=== PATIENT | male | born 1950 | race Caucasian/White ===

== ENCOUNTER 2017-05-17 18:08 | Inpatient (IN) | payer MEDICARE ==
[2017-05-17] MEDS ORDERED: SODIUM CHLORIDE 0.9% 1,000 ML IV STA (18:33)
--- NOTE | 2017-05-17 18:38 | ED ---
Neuro HPI - General Chief Complaint: Neuro Symptoms/Deficit Stated Complaint: LEFT ARM , LEFT FACE NUMBNESS Time Seen by Provider: 05/17/17 18:25 Source: patient, RN notes reviewed, old records reviewed Mode of arrival: wheelchair Limitations: no limitations - History of Present Illness Is the patient presenting with stroke symptoms?: No Initial Comments: This patient is a 66-year-old male presents emergency department today chief complaint of left-sided facial numbness and left arm numbness that started at 5 PM today. Patient reports he has a history of high platelet disorder and is currently taking hydroxyurea 3 times a week. He sees an oncologist at [facility] who prescribed these medications for him. Patient reports that he has no other physical complaints. He states that he had a periodic episode of weakness in the left hand but that subsided. Patient reports a few weeks ago he had similar symptoms occur on the right side of his arm and hand but those symptoms shortly subsided. Patient states that he has been having increased heartburn, was unsure Related to cardiac origin rather than just heartburn. He states that he did eat chili so was not as concerned about this. Patient states that he has no shortness of breath or chest pain at this time, denies any headache. - Related Data Home Medications: Home Medications Medication Instructions Recorded Confirmed Hydroxyurea 500 mg PO DAILY 07/25/15 10/03/15 Flaxseed Tablet 1,300 mg PO DAILY 10/01/15 10/03/15 Garlic 1 each PO DAILY 10/01/15 10/03/15 Glucosam/Braydon-Msm1/C/Jose M/Bosw 1 each PO DAILY 10/01/15 10/03/15 [Glucosamine-Chondroitin Tablet] Allergies/Adverse Reactions: Allergies Allergy/AdvReac Type Severity Reaction Status Date / Time bacitracin Allergy Rash/Hives Verified 05/17/17 18:10 [From Neosporin ([id number])] bacitracin zinc Allergy Rash/Hives Verified 05/17/17 18:10 [From Neosporin ([id number])] neomycin sulfate Allergy Rash/Hives Verified 05/17/17 18:10 [From Neosporin ([id number])] polymyxin B Allergy Rash/Hives Verified 05/17/17 18:10 [From Neosporin ([id number])] Review of Systems ROS Statement: Those systems with pertinent positive or pertinent negative responses have been documented in the HPI. ROS Other: All systems not noted in ROS Statement are negative. General Exam - General Exam Comments Initial Comments: This patient is a 66-year-old male. He is alert and oriented 4. No acute distress. Limitations: no limitations General appearance: alert, in no apparent distress Head exam: Present: atraumatic, normocephalic, normal inspection Eye exam: Present: normal appearance, PERRL, EOMI. Absent: scleral icterus, conjunctival injection, periorbital swelling ENT exam: Present: normal exam, mucous membranes moist Neck exam: Present: normal inspection. Absent: tenderness, meningismus, lymphadenopathy Respiratory exam: Present: normal lung sounds bilaterally. Absent: respiratory distress, wheezes, rales, rhonchi, stridor Cardiovascular Exam: Present: regular rate, normal rhythm, normal heart sounds. Absent: systolic murmur, diastolic murmur, rubs, gallop, clicks GI/Abdominal exam: Present: soft, normal bowel sounds. Absent: distended, tenderness, guarding, rebound, rigid Extremities exam: Present: normal inspection, full ROM, normal capillary refill. Absent: tenderness, pedal edema, joint swelling, calf tenderness Back exam: Present: normal inspection Neurological exam: Present: alert, oriented X3, CN II-XII intact, normal gait Expanded Patient oriented to: Present: person, place, time Speech: Present: fluid speech Cranial nerves: EOM's Intact: Normal Cerebellar function: Finger to Nose: Normal Upper motor neuron: Pronator Drift: Normal Sensory exam: Upper Extremity Light Touch: Normal, Lower Extremity Light Touch: Normal Motor strength exam: RUE: 5, LUE: 5, RLE: 5, LLE: 5 Eye Response: (4) open spontaneously Motor Response: (6) obeys commands Verbal Response: (5) oriented Shea Total: 15 Psychiatric exam: Present: normal affect, normal mood Skin exam: Present: warm, dry, intact, normal color. Absent: rash Stroke MDM - Lab Data Result diagrams: 05/17/17 19:15 05/17/17 19:15 Lab Results 05/17/17 05/17/17 05/17/17 Range/Units 18:38 19:15 19:15 WBC 9.7 (3.8-10.6) k/uL RBC 5.13 (4.30-5.90) m/uL Hgb 17.0 (13.0-17.5) gm/dL Hct 50.9 (39.0-53.0) % MCV 99.3 (80.0-100.0) fL MCH 33.1 (25.0-35.0) pg MCHC 33.3 (31.0-37.0) g/dL RDW 14.2 (11.5-15.5) % Plt Count 606 H (150-450) k/uL Neutrophils % 77 % Lymphocytes % 13 % Monocytes % 4 % Eosinophils % 3 % Basophils % 1 % Neutrophils # 7.5 (1.3-7.7) k/uL Lymphocytes # 1.2 (1.0-4.8) k/uL Monocytes # 0.4 (0-1.0) k/uL Eosinophils # 0.3 (0-0.7) k/uL Basophils # 0.1 (0-0.2) k/uL Macrocytosis Slight PT (9.0-12.0) sec INR (<1.2) APTT (22.0-30.0) sec Sodium (137-145) mmol/L Potassium (3.5-5.1) mmol/L Chloride (98-107) mmol/L Carbon Dioxide (22-30) mmol/L Anion Gap mmol/L BUN (9-20) mg/dL Creatinine (0.66-1.25) mg/dL Est GFR (MDRD) Af Amer (>60 ml/min/1.73 sqM) Est GFR (MDRD) Non-Af (>60 ml/min/1.73 sqM) Glucose (74-99) mg/dL POC Glucose (mg/dL) 119 H (75-99) mg/dL POC Glu Mine Captain ID Arturo Hall Calcium (8.4-10.2) mg/dL Total Bilirubin (0.2-1.3) mg/dL AST (17-59) U/L ALT (21-72) U/L Alkaline Phosphatase (38-126) U/L Total Creatine Kinase 86 (55-170) U/L CK-MB (CK-2) 1.2 (0.0-2.4) ng/mL CK-MB (CK-2) Rel Index 1.4 Troponin I <0.012 (0.000-0.034) ng/mL Total Protein (6.3-8.2) g/dL Albumin (3.5-5.0) g/dL 05/17/17 05/17/17 Range/Units 19:15 19:15 WBC (3.8-10.6) k/uL RBC (4.30-5.90) m/uL Hgb (13.0-17.5) gm/dL Hct (39.0-53.0) % MCV (80.0-100.0) fL MCH (25.0-35.0) pg MCHC (31.0-37.0) g/dL RDW (11.5-15.5) % Plt Count (150-450) k/uL Neutrophils % % Lymphocytes % % Monocytes % % Eosinophils % % Basophils % % Neutrophils # (1.3-7.7) k/uL Lymphocytes # (1.0-4.8) k/uL Monocytes # (0-1.0) k/uL Eosinophils # (0-0.7) k/uL Basophils # (0-0.2) k/uL Macrocytosis PT 10.7 (9.0-12.0) sec INR 1.1 (<1.2) APTT 25.7 (22.0-30.0) sec Sodium 143 (137-145) mmol/L Potassium 4.8 (3.5-5.1) mmol/L Chloride 106 (98-107) mmol/L Carbon Dioxide 25 (22-30) mmol/L Anion Gap 12 mmol/L BUN 16 (9-20) mg/dL Creatinine 0.80 (0.66-1.25) mg/dL Est GFR (MDRD) Af Amer >60 (>60 ml/min/1.73 sqM) Est GFR (MDRD) Non-Af >60 (>60 ml/min/1.73 sqM) Glucose 105 H (74-99) mg/dL POC Glucose (mg/dL) (75-99) mg/dL POC Glu Mine Captain ID Calcium 9.8 (8.4-10.2) mg/dL Total Bilirubin 0.4 (0.2-1.3) mg/dL AST 32 (17-59) U/L ALT 40 (21-72) U/L Alkaline Phosphatase 90 (38-126) U/L Total Creatine Kinase (55-170) U/L CK-MB (CK-2) (0.0-2.4) ng/mL CK-MB (CK-2) Rel Index Troponin I (0.000-0.034) ng/mL Total Protein 6.5 (6.3-8.2) g/dL Albumin 4.2 (3.5-5.0) g/dL - NIH Stroke Scale 1a. Level of Consciousness: (0) alert 1b. LOC Questions: (0) answers correctly 1c. LOC Commands: (0) performs tasks correctly 2. Best Gaze: (0) normal 3. Visual: (0) no visual loss 4. Facial Palsy: (0) normal symmetrical movement 5a. Motor Arm Left: (0) no drift 5b. Motor Arm Right: (0) no drift 6a. Motor Leg Left: (0) no drift 6b. Motor Leg Right: (0) no drift 7. Limb Ataxia: (0) absent 8. Sensory: (0) normal 9. Best Language: (0) no aphasia 10. Dysarthria: (0) normal 11. Extinction/Inattention: (0) no abnormality - Medical Decision Making 66-year-old male presents emergency Department chief complaint of left-sided facial paresthesias and left arm paresthesias. They started at 5 PM today. He reports that for brief moment time and started him motor function loss that then shortly returned. He had symptoms like this on the right side of his body last a few weeks ago. Patient states that he has history of high platelet count. He has to take hydroxyurea takes 3 times a week. Patient states that otherwise is generally healthy. He has a family history of strokes. At this time patient has no focal neurological findings. No signs of deficits NIH of 0. We discussed this with Dr. Reinoso. He will admit the patient for 23 hour out. When patient was informed of possibility of having to pay for 23 hour observation he states that he does not want to do that at this time. I informed to the patient within have to leave AMA and follow-up promptly with Dr. Reinoso morning. Patient agrees, at this time patient will be leaving AMA. - Radiology Data No active cardiopulmonary disease. Normal heart. 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 No acute intracranial abnormality. No chagnes noted. - EKG Data EKG shows normal: sinus rhythm 05/17/17 18:49 EKG shows normal sinus rhythm, left axis deviation. Voltage criteria for LVH. Ventricular rate of 73 bpm 90 ms. QRS ration 80 ms. QT QTc is 354/389 ms. No evidence of ST elevation or T-wave inversion. Past Medical History Past Medical History: Osteoarthritis (OA) Additional Past Medical History / Comment(s): ELEVATED PLATELET COUNT History of Any Multi-Drug Resistant Organisms: None Reported Past Surgical History: Orthopedic Surgery Additional Past Surgical History / Comment(s): RIGHT SHOULDER X 2 , ARTHROSCOPIC LEFT KNEE Past Anesthesia/Blood Transfusion Reactions: No Reported Reaction Past Psychological History: No Psychological Hx Reported Smoking Status: Never smoker - Past Family History Mother Family Medical History: CVA/TIA, Dementia Course Vital Signs 05/17/17 05/17/17 05/17/17 18:10 18:45 19:00 Temperature 97.4 F L Pulse Rate 69 66 71 Respiratory 17 20 20 Rate Blood Pressure 159/80 133/78 136/80 O2 Sat by Pulse 94 L 98 98 Oximetry 05/17/17 05/17/17 05/17/17 19:15 19:30 19:45 Temperature Pulse Rate 75 73 80 Respiratory 18 20 16 Rate Blood Pressure 140/80 136/78 132/77 O2 Sat by Pulse 98 98 99 Oximetry 05/17/17 05/17/17 19:57 20:00 Temperature Pulse Rate 75 80 Respiratory 18 20 Rate Blood Pressure 134/75 148/58 O2 Sat by Pulse 95 98 Oximetry - Reevaluation(s) Reevaluation #1: 05/17/17 19:57 Patient was reevaluated at this time and is neurologically intact. No deficits. I informed patient for admission for TIA symptoms. He agrees to admission. Currently pending troponin and cardiac profile. Patient's elbow lids are elevated at this time at 606. He was given an aspirin. Disposition Clinical Impression: TIA (transient ischemic attack), Arm paresthesia, left, Facial paresthesia Disposition: Left Against Medical Advice Condition: Good Time of Disposition: 21:00
[2017-05-17] MEDS ORDERED: ASPIRIN 325 MG TAB PO STA (18:41)
[2017-05-17 19:05] LABS: Glucose,Whole Blood 119 mg/dL (75-99)
--- NOTE | 2017-05-17 19:21 | CT ---
EXAMINATION TYPE: CT brain wo con DATE OF EXAM: 05/17/2017 COMPARISON: 07/25/2015 HISTORY: LEFT ARM WEAKNESS. CT DLP: 1089.7 mGycm Automated exposure control for dose reduction was used. FINDINGS: The ventricles appear normal. There is no mass effect nor midline shift. There is no sign of intracra nial hemorrhage. There is a 2 cm area of hypodensity in the left posterior frontal lobe consistent wi th old cortical infarct. The calvarium is intact. IMPRESSION: OLD LEFT FRONTAL LOBE CORTICAL INFARCT. NO ACUTE INTRACRANIAL ABNORMALITY. NO CHANGE.
--- NOTE | 2017-05-17 19:24 | XR ---
EXAMINATION TYPE: XR chest 2V DATE OF EXAM: 05/17/2017 COMPARISON: NONE HISTORY: Altered mental status. Chest pain. TECHNIQUE: Frontal and lateral views of the chest are obtained. FINDINGS: There is no heart failure nor confluent pneumonic infiltrate. Thoracic aorta shows mild at heromatous change. There are chest leads. Costophrenic angles are clear. IMPRESSION: No active cardiopulmonary disease. Normal heart.
[2017-05-17 19:34] LABS: Basophils # (A) 0.1 k/uL (0-0.2); Basophils % (A) 1 %; Eosinophils # (A) 0.3 k/uL (0-0.7); Eosinophils % (A) 3 %; HCT 50.9 % (39.0-53.0); Lymphocytes # (A) 1.2 k/uL (1.0-4.8); Lymphocytes % (A) 13 %; MCH 33.1 pg (25.0-35.0); MCHC 33.3 g/dL (31.0-37.0); MCV 99.3 fL (80.0-100.0); Macrocytosis Slight; Monocytes # (A) 0.4 k/uL (0-1.0); Monocytes % (A) 4 %; Neutrophils # (A) 7.5 k/uL (1.3-7.7); Neutrophils % (A) 77 %; Platelet Count 606 k/uL (150-450); RBC 5.13 m/uL (4.30-5.90); RDW 14.2 % (11.5-15.5); WBC 9.7 k/uL (3.8-10.6)
[2017-05-17 19:40] LABS: INR 1.1 (<1.2); Partial Thromboplastin Time 25.7 sec (22.0-30.0); Prothrombin Time 10.7 sec (9.0-12.0)
[2017-05-17 19:44] LABS: ALT 40 U/L (21-72); AST 32 U/L (17-59); Albumin 4.2 g/dL (3.5-5.0); Alkaline Phosphatase 90 U/L (38-126); Anion Gap 12 mmol/L; Blood Urea Nitrogen 16 mg/dL (9-20); Calcium 9.8 mg/dL (8.4-10.2); Carbon Dioxide 25 mmol/L (22-30); Chloride 106 mmol/L (98-107); Glucose 105 mg/dL (74-99); Potassium 4.8 mmol/L (3.5-5.1); Sodium 143 mmol/L (137-145); Total Bilirubin 0.4 mg/dL (0.2-1.3); Total Protein 6.5 g/dL (6.3-8.2)
[2017-05-17 19:51] LABS: Creatine Kinase 86 U/L (55-170)
[2017-05-17] MEDS: SODIUM CHLORIDE 0.9% 1,000 ML IV SCH (19:55)
[2017-05-17 20:03] LABS: Creatine Kinase MB 1.2 ng/mL (0.0-2.4); Troponin I <0.012 ng/mL (0.000-0.034)
--- NOTE | 2017-05-17 21:36 | ED ---
Medical Decision Making - Medical Decision Making And was then determine the patient does meet inpatient criteria due to computed tomography scan show previous infarct. Patient will now meet inpatient criteria and be admitted. He agrees to this. - Lab Data Result diagrams: 05/17/17 19:15 05/17/17 19:15 Lab Results 05/17/17 05/17/17 05/17/17 Range/Units 18:38 19:15 19:15 WBC 9.7 (3.8-10.6) k/uL RBC 5.13 (4.30-5.90) m/uL Hgb 17.0 (13.0-17.5) gm/dL Hct 50.9 (39.0-53.0) % MCV 99.3 (80.0-100.0) fL MCH 33.1 (25.0-35.0) pg MCHC 33.3 (31.0-37.0) g/dL RDW 14.2 (11.5-15.5) % Plt Count 606 H (150-450) k/uL Neutrophils % 77 % Lymphocytes % 13 % Monocytes % 4 % Eosinophils % 3 % Basophils % 1 % Neutrophils # 7.5 (1.3-7.7) k/uL Lymphocytes # 1.2 (1.0-4.8) k/uL Monocytes # 0.4 (0-1.0) k/uL Eosinophils # 0.3 (0-0.7) k/uL Basophils # 0.1 (0-0.2) k/uL Macrocytosis Slight PT (9.0-12.0) sec INR (<1.2) APTT (22.0-30.0) sec Sodium (137-145) mmol/L Potassium (3.5-5.1) mmol/L Chloride (98-107) mmol/L Carbon Dioxide (22-30) mmol/L Anion Gap mmol/L BUN (9-20) mg/dL Creatinine (0.66-1.25) mg/dL Est GFR (MDRD) Af Amer (>60 ml/min/1.73 sqM) Est GFR (MDRD) Non-Af (>60 ml/min/1.73 sqM) Glucose (74-99) mg/dL POC Glucose (mg/dL) 119 H (75-99) mg/dL POC Glu Panel Raiser Operator ID Rafael, Arturo Calcium (8.4-10.2) mg/dL Total Bilirubin (0.2-1.3) mg/dL AST (17-59) U/L ALT (21-72) U/L Alkaline Phosphatase (38-126) U/L Total Creatine Kinase 86 (55-170) U/L CK-MB (CK-2) 1.2 (0.0-2.4) ng/mL CK-MB (CK-2) Rel Index 1.4 Troponin I <0.012 (0.000-0.034) ng/mL Total Protein (6.3-8.2) g/dL Albumin (3.5-5.0) g/dL 05/17/17 05/17/17 Range/Units 19:15 19:15 WBC (3.8-10.6) k/uL RBC (4.30-5.90) m/uL Hgb (13.0-17.5) gm/dL Hct (39.0-53.0) % MCV (80.0-100.0) fL MCH (25.0-35.0) pg MCHC (31.0-37.0) g/dL RDW (11.5-15.5) % Plt Count (150-450) k/uL Neutrophils % % Lymphocytes % % Monocytes % % Eosinophils % % Basophils % % Neutrophils # (1.3-7.7) k/uL Lymphocytes # (1.0-4.8) k/uL Monocytes # (0-1.0) k/uL Eosinophils # (0-0.7) k/uL Basophils # (0-0.2) k/uL Macrocytosis PT 10.7 (9.0-12.0) sec INR 1.1 (<1.2) APTT 25.7 (22.0-30.0) sec Sodium 143 (137-145) mmol/L Potassium 4.8 (3.5-5.1) mmol/L Chloride 106 (98-107) mmol/L Carbon Dioxide 25 (22-30) mmol/L Anion Gap 12 mmol/L BUN 16 (9-20) mg/dL Creatinine 0.80 (0.66-1.25) mg/dL Est GFR (MDRD) Af Amer >60 (>60 ml/min/1.73 sqM) Est GFR (MDRD) Non-Af >60 (>60 ml/min/1.73 sqM) Glucose 105 H (74-99) mg/dL POC Glucose (mg/dL) (75-99) mg/dL POC Glu Panel Raiser Operator ID Calcium 9.8 (8.4-10.2) mg/dL Total Bilirubin 0.4 (0.2-1.3) mg/dL AST 32 (17-59) U/L ALT 40 (21-72) U/L Alkaline Phosphatase 90 (38-126) U/L Total Creatine Kinase (55-170) U/L CK-MB (CK-2) (0.0-2.4) ng/mL CK-MB (CK-2) Rel Index Troponin I (0.000-0.034) ng/mL Total Protein 6.5 (6.3-8.2) g/dL Albumin 4.2 (3.5-5.0) g/dL Disposition Clinical Impression: TIA (transient ischemic attack), Arm paresthesia, left, Facial paresthesia Disposition: ADMITTED IP TO THIS HOSP Condition: Good
[2017-05-17 23:00] VITALS: RESP 16; BMI 25.9
[2017-05-17 23:05] LABS: Glucose,Whole Blood 90 mg/dL (75-99)
[2017-05-18 04:13] LABS: Cholesterol 166 mg/dL (<200); HDL Cholesterol 34 mg/dL (40-60); LDL Cholesterol,Calculated 80 mg/dL (0-99); Triglycerides 261 mg/dL (<150)
[2017-05-18 04:55] VITALS: TEMP 97.1
[2017-05-18] MEDS: SODIUM CHLORIDE 0.9% 1,000 ML IV SCH (08:33)
--- NOTE | 2017-05-18 08:49 | US ---
EXAMINATION TYPE: US carotid duplex BILAT DATE OF EXAM: 05/18/2017 COMPARISON: US 2010 CLINICAL HISTORY: Stenosis. Left arm and left side of face numbness, TIA EXAM MEASUREMENTS: RIGHT: Peak Systolic Velocity (PSV) cm/sec ----- Right CCA: 59.0 ----- Right ICA: 70.5 ----- Right ECA: 75.8 ICA/CCA ratio: 1.2 RIGHT: End Diastole cm/sec ----- Right CCA: 18.9 ----- Right ICA: 29.4 ----- Right ECA: 8.9 LEFT: Peak Systolic Velocity (PSV) cm/sec ----- Left CCA: 61.5 ----- Left ICA: 71.7 ----- Left ECA: 81.1 ICA/CCA ratio: 1.2 LEFT: End Diastole cm/sec ----- Left CCA: 14.1 ----- Left ICA: 24.2 ----- Left ECA: 6.2 VERTEBRALS (direction of flow): Right Vertebral: Antegrade Left Vertebral: Antegrade Rhythm: Normal No elevated velocities, no significant stenosis. IMPRESSION: 1. No significant hemodynamic stenosis bilaterally. 2. Intimal thickening and mild atherosclerotic plaque. Criteria for Assigning % of Stenosis / Diameter reduction (Estimation based on the indirect measurements of the internal carotid artery velocities (ICA PSV). 1. Normal (no stenosis)=ICA PSV < 125 cm/s: ratio < 2.0: ICA EDV<40 cm/s. 2. Less than 50% stenosis=ICA PSV < 125 cm/s: ratio < 2.0: ICA EDV<40 cm/s. 3. 50 to 69% stenosis=ICA PSV of 125 to 230 cm/s: ration 2.0 ? 4.0: ICA EDV 40-100 cm/s. 4. Greater than 70% stenosis to near occlusion= ICA PSV > 230 cm/s: ratio > 4.0: ICA EDV > 100 cm/s. 5. Near occlusion= ICA PSV velocities may be low or undetectable: variable ratio and ICA EDV. 6. Total occlusion=unable to detect flow.
[2017-05-18] MEDS ORDERED: FLAXSEED PO SCH (09:00)
[2017-05-18] MEDS ORDERED: HYDROXYUREA 500 MG CAP PO SCH (09:00)
[2017-05-18] MEDS ORDERED: GARLIC PO SCH (09:00)
[2017-05-18] MEDS ORDERED: FAMOTIDINE 20 MG TAB PO SCH (09:00)
[2017-05-18] MEDS ORDERED: NON-FORMULARY DRUG (Glucosam/Chon-Msm1/C/Mang/Bosw [Glucosamine-Chondroitin Tablet] 1 EACH PO SCH (09:00)
[2017-05-18] MEDS ORDERED: ASPIRIN 325 MG TAB PO SCH (12:00)
[2017-05-18 12:26] VITALS: BP 123/78; PULSE 66
--- NOTE | 2017-05-18 20:44 | HP ---
HISTORY AND PHYSICAL ATTENDING PHYSICIAN: Dr. Tank Reinoso. CHIEF COMPLAINT: Numbness, left arm. HISTORY OF PRESENT ILLNESS: This is a 66-year-old gentleman who presented to the emergency room with complaint that he had some numbness of the left upper extremity and left face lasting about 20-30 minutes. The patient said the symptoms gradually improved. His symptoms are mostly concentrated in the left hand 4th and 5th finger. The symptoms occurred when he was sitting at the dinner table. He did not lose control of the fork. He did feel some tingling and numbness sensation in the left lower face. There was no associated motor deficit. The patient denies any associated visual changes, any difficulty swallowing, speech, or any weakness on one or the other side. His gait was steady. The patient later on presented to the emergency room in view of that because he has a family medical history of stroke, his mother had a stroke and his grandmother had a stroke. The patient says about a month ago while he was doing yard work, he had a similar tingling, he had symptoms of the right where he felt like the right hand was tingling and had difficulty coordinating with that hand. The patient again stated symptoms lasted about 20 minutes and resolved. The patient presented to the emergency room in view of this. The patient had not seen anybody for those symptoms. He presents to the emergency room today. He denies any headaches. The patient is evaluated in the emergency room. Had CT scan of the head done which reveals an old infarct in the left frontal area. The patient has no idea about having had one previously. The patient has no history of any other major illnesses such as hypertension, diabetes, lung disease, liver disease. No history of any kidney disease, ulcers, TB, hepatitis, rheumatic fever, myocardial infarction or CVA. He does have history of coronary artery disease for which he follows with a mechanism inspector. The patient has a history of essential thrombocytosis. His platelet count was 616,000. He has been on suppose to have been Hydrea 1 daily, but he takes 1 about 3 days a week. The patient has no other major illnesses and has no history of any peripheral heart disease. PAST SURGICAL HISTORY: Left knee arthroscopy, right shoulder surgery, right maxillary fracture and nasal septal deviation surgery. PERSONAL HISTORY: Never smoker. Alcohol, rare alcohol, rare beer. FAMILY MEDICAL HISTORY: Father 87 history of mild dementia. Mother 87 with history of dementia and hypertension, , she also had a stroke. The patient has a brother 61, a brother, 59 and brother 57, all in good health. Two sisters, 54 and 52 in good health. Daughter in good health. Patient's son 31 with history of Crohn disease. SOCIAL HISTORY: Patient is . Lives with his spouse. He is retired. Exercise limited, but he is active. MEDICATIONS: Medications at present include Hydrea 500 mg. He basically takes 3 days a week. REVIEW OF SYSTEMS: NEURO: Denies any headaches, dizziness. No double vision, blurred vision. No symptoms of syncope or seizures. Present complaint of numbness left hand, arm and left lower face. Denies any neck pain. Psych: No anxiety or depression. ENT decreased hearing, normal smell, taste. Eyes: Good vision in all mcleod. CARDIAC: No chest pain, angina or palpitations. Respiratory: No shortness of breath, cough or hemoptysis. GI no nausea, vomiting, abdominal pain, diarrhea, constipation, hematochezia, melena. No symptoms of dysuria, hematuria, urgency, frequency. EXTREMITIES: No pain, edema. Constitutional: No fever or chills. Hematological: No anemia or bleeding disorder. Endocrine: No history of diabetes mellitus, hypothyroidism. Skin no rashes. PHYSICAL EXAMINATION: Pleasant gentleman in no distress. Vital signs reveals blood pressure was at the time of visit to the emergency room was 159/80, temperature 97.4, pulse 64, and pulse ox of 94% on room air. At the time of evaluation, patient is afebrile. Pulse 63, respirations 16, blood pressure 142/74, pulse ox of 94% on room air. HEENT: Normocephalic. NECK: Supple. Pupils reactive. Nostrils are clear. Oral cavity is moist. Pharyngeal movements symmetrical. Bilateral ears reveal no drainage. Wears hearing aids. Neck was no JVD, carotid bruits or thyromegaly. Chest examination is clear to auscultation and percussion. Normal S1, S2 with no gallops, murmurs, or rubs appreciated. Regular rhythm. ABDOMEN: Soft. No palpable masses. Bowel sounds normal. No organomegaly. No abdominal bruits. Extremities reveal no edema. Good pulses both upper lower extremities. Neurological awake, alert, oriented x3. Cranial nerves 2-12 intact except for hearing loss. The patient has well-coordinated movements with equal strength bilaterally, equal and normal strength bilaterally. Deep tendon reflexes generalized decreased but symmetrical. Plantars are equivocal bilateral. Gait is steady. Station stable. Negative Romberg's. No nystagmus. LABORATORY ASSESSMENT: Was a report of the CT scan as discussed above. The patient's electrolytes were normal. CBC was normal with the patient's CBC revealed hemoglobin 17, platelet count of 606. PT, PTT were normal. Random blood glucose was 105. Electrolytes, BUN, creatinine were normal. Hepatic function normal. CPK normal. Troponin negative. The patient triglycerides were 261, though not fasting. Cholesterol 166, LDL 82, HDL 34. ASSESSMENT: 1. Possible transient ischemic attack. 2. Cannot rule out cervical disc disease. 3. Remote history of left frontal infarct by CAT scan. 4. History of coronary artery disease. PLAN: The patient at present is stable. Continue present medical regimen. Patient's condition is discussed with the patient. Patient is not in favor of statin drugs. He is not on any medications. He should be taking an aspirin. The patient also Hydrea to be increased up to 4 days a week and try and get his platelet counts down, somewhat less than what they are. I had a long discussion with the patient about the risks of strokes from hypertension and atherosclerosis and hyperlipidemia and diabetes are contributing factors. The patient is a nonsmoker. We will encourage patient to monitor his blood pressures on regular basis and follow a stricter diet. May benefit from using statin drugs, if he does agree to take them. Also, the patient will continue taking a full aspirin a day. The patient will have carotid duplex studies done to rule out any atherosclerotic blockages of the carotids. The patient's condition discussed in detail. Prognosis remains guarded. MMODL / IJN: [id number] /
--- NOTE | 2017-05-18 23:41 | DS ---
DISCHARGE SUMMARY PRINCIPAL DIAGNOSES: 1. Transient ischemic attack. 2. Previous left frontal cerebrovascular accident. 3. Thrombocytosis. 4. History of coronary artery disease. HOSPITAL COURSE: This gentleman was admitted to the hospital after presenting to the emergency room with symptoms earlier in the day of some tingling and numbness sensation of the left hand, predominantly left 4th and 5th fingers. The patient also had some left lower facial symptoms. There were no motor symptoms. The patient, however, about a month ago had similar symptoms affecting his left arm and then subsequently right arm. At that time the right arm had some incoordination. The patient, following admission, is noted to have no evidence of any focal findings. He only has subjective findings. He was monitored. Blood pressure mildly elevated at the time of the visit, which settled down. The patient was given aspirin. CT scan did not revealed any acute bleeding. He did undergo carotid duplex studies which would not indicative of any significant blockage. The patient is remaining stable with no focal signs. He was advised to continue taking aspirin 325 mg daily. He is not interested in taking statin drugs. The patient will follow his diet more strictly, maintaining a low-fat low-cholesterol diet. The patient also will increase his Hydrea to 4 times a week. We will follow the patient up with subsequent platelet counts again, and fasting lipids. The patient's prognosis remains guarded. Condition discussed with the patient in detail. Patient's condition was discussed over the phone prior to discharge regarding his carotid duplex studies. Prognosis remains guarded. MMODL / IJN: [id number] /
== END 2017-05-18 14:26 | disposition home or self-care (01) | DRG 69 ==
LOC: EC 18:08 → OBSVTOIN 21:01 → 6SEL 21:01 → UNDODISIN 05-18 14:13
PROVIDERS: ADMIT Internal Medicine; ATTEND Internal Medicine
DX: G45.9 Transient cerebral ischemic attack, unspecified (principal); D47.3 Essential (hemorrhagic) thrombocythemia; I25.10 Atherosclerotic heart disease of native coronary artery without angina pectoris; R40.2362 Coma scale, best motor response, obeys commands, at arrival to emergency department; R40.2142 Coma scale, eyes open, spontaneous, at arrival to emergency department; R40.2252 Coma scale, best verbal response, oriented, at arrival to emergency department; R29.700 NIHSS score 0; M19.91 Primary osteoarthritis, unspecified site; Z79.899 Other long term (current) drug therapy; Z88.1 Allergy status to other antibiotic agents; Z82.3 Family history of stroke
CPT/HCPCS: 36415; 70450; 71046; 80053; 80061; 82550; 82553; 84484; 85025; 85610; 85730; 93005; 93880; 99285

== ENCOUNTER → 2017-05-27 | Outpatient (CLI) | payer MEDICARE ==
[2017-05-27 13:12] LABS: ALT 39 U/L (21-72); AST 33 U/L (17-59); Cholesterol 154 mg/dL (<200); HDL Cholesterol 31 mg/dL (40-60); LDL Cholesterol,Calculated 92 mg/dL (0-99); Triglycerides 156 mg/dL (<150)
== END | disposition home or self-care (01) ==
LOC: LAB 11:56
PROVIDERS: ATTEND Internal Medicine Interventional Cardiology
DX: E78.2 Mixed hyperlipidemia (principal)
CPT/HCPCS: 80061; 84450; 84460

== ENCOUNTER → 2017-05-28 | Day surgery (SDC) | payer MEDICARE ==
[2017-05-25 16:28] VITALS: BMI 26.6
[~2017-05-28] MED LIST: MIDAZOLAM 2 MG/2 ML VIAL IV ONE; SODIUM CHLORIDE 0.9% 1,000 ML IV ONE
[2017-05-28] MEDS: BENZOCAINE SPRAY 1 SPRAY CAN MUCOUS MEM ONE ×2 (07:42→07:46)
[2017-05-28] MEDS: fentaNYL (PF) 50 MCG/ML 2 ML AMP IV ONE ×3 (07:52→08:10)
[2017-05-28] MEDS: MIDAZOLAM 2 MG/2 ML VIAL IV ONE ×2 (07:55→07:57)
[2017-05-28 08:16] VITALS: RESP 16
[2017-05-28 08:31] VITALS: TEMP 97.8
--- NOTE | 2017-05-28 08:57 | ECHOT ---
TRANSESOPHAGEAL ECHOCARDIOGRAM DATE OF SERVICE: 05/28/2017 PERFORMING PHYSICIAN: Demario Magaña MD, delivery sales worker. PROCEDURE PERFORMED: Transesophageal echocardiogram. INDICATION: This is a pleasant 66-year-old gentleman who had an episode of TIA and a transesophageal echocardiogram is to rule out any cardiac source of embolization. COMPLICATION: None. LEVEL OF SEDATION: Moderate with sedation length of 26 minutes. PROCEDURE DESCRIPTION: After obtaining an informed consent, explaining the procedure, benefits, risks, complications and alternatives, the patient was brought to the transesophageal echocardiogram suite. A pulse oximetry and heart rate monitors were attached to the patient prior to the procedure. The patient's throat was sprayed using lidocaine locally. Following that, the patient was turned into left lateral position. A bite guard was placed and the patient was then sedated with the above doses of Versed and fentanyl in divided doses. Following that, the transesophageal echocardiogram probe was advanced through the bite guard into the mid esophagus where 2-D echocardiogram images as well as color Doppler images of various cardiac structures were obtained. We evaluated the interatrial septum using 2-D echocardiogram, color Doppler, and contrast study. The procedure was completed. There were no complications. FINDINGS: The left ventricular dimension and systolic function appeared to be within normal limits. The ejection fraction appeared to be in the range of 50% to 55%. The right ventricle is of normal size and function. The left atrium appeared to be within normal limits for dimension. The left atrial appendage appeared to be clear without any evidence of thrombus. The interatrial septum appeared to be hyperdynamic with possible very small patent dang ovale seen. The aortic valve is trileaflet valve without stenosis or regurgitation. The mitral valve seems to be normal with trace MR. Normal tricuspid valve and pulmonic valve. CONCLUSION: 1. Hyperdynamic interatrial septum with possible very small patent dang ovale. 2. Normal left atrial appendage without any evidence of thrombus. 3. Normal cardiac chamber sizes. 4. Normal left ventricular dimension and systolic function. 5. Normal intracardiac valves. 6. No evidence of pericardial effusion. MMODL / IJN: [id number] /
[2017-05-28 09:17] VITALS: BP 105/65; PULSE 58
== END ==
LOC: CATHCVL 06:27
PROVIDERS: ATTEND Internal Medicine Interventional Cardiology
DX: R07.89 Other chest pain (principal); Z86.73 Personal history of transient ischemic attack (TIA), and cerebral infarction without residual deficits; F17.290 Nicotine dependence, other tobacco product, uncomplicated; E78.5 Hyperlipidemia, unspecified; Z82.49 Family history of ischemic heart disease and other diseases of the circulatory system; D75.1 Secondary polycythemia; Z79.82 Long term (current) use of aspirin; Z79.899 Other long term (current) drug therapy
CPT/HCPCS: 93312; 93320; 93325; J2250; J3010

== ENCOUNTER → 2017-05-29 | Outpatient (CLI) | payer MEDICARE ==
--- NOTE | 2017-05-30 14:31 | MR ---
EXAMINATION TYPE: MR brain wo/w con DATE OF EXAM: 05/29/2017 COMPARISON: 05/17/2017 and 07/25/2015 HISTORY: Transient ischemic attacks TECHNIQUE: Multiplanar, multisequence images of the brain and brainstem is performed without and with IV contras t, utilizing 7.5 mL intravenous Gadavist . FINDINGS: Diffusion weighted images demonstrate no evidence of a recent infarct or other diffusion ab normality. Encephalomalacia is seen in the left frontal lobe anteriorly from prior cortical infarct w ithout abnormal enhancement. Other scattered areas of punctate T2/FLAIR hyperintensities are seen wit hin the subcortical and periventricular white matter that also demonstrate no abnormal enhancement. T here is dominance of the right posterior communicating artery with a diminutive left posterior commun icating artery. No evidence of vascular occlusion. No evidence of abnormal intracranial enhancement. 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 There is no extra-axial fluid collection. The ventricular system and cisternal spaces are mildly sym metrically prominent. The brain volume is age appropriate. Midline structures demonstrate normal morphology. The craniocervical junction appears within normal limits. The dural venous sinuses appear patent. Minimal mucosal thickening is seen within the ethmoid sinuses. The remaining visualized sinuses are clear and the globes are intact. IMPRESSION: 1. Encephalomalacia in the left frontal lobe from prior cortical infarct without abnormal enhancement . 2. No evidence of acute infarct. 3. No abnormal postcontrast intracranial enhancement. 4. Mild burden nonspecific white matter changes, likely on the basis of microangiopathy.
== END | disposition home or self-care (01) ==
LOC: RADMRIMAIN 12:37
PROVIDERS: ATTEND Internal Medicine
DX: G93.89 Other specified disorders of brain (principal); R90.89 Other abnormal findings on diagnostic imaging of central nervous system; Z86.73 Personal history of transient ischemic attack (TIA), and cerebral infarction without residual deficits
CPT/HCPCS: 70553; A9581

== ENCOUNTER → 2019-02-14 | Outpatient (CLI) | payer MEDICARE ==
[2019-02-14 14:39] VITALS: TEMP 97.7
[2019-02-14 14:52] LABS: HGB 18.9 gm/dL (13.0-17.5); MCHC 33.1 g/dL (31.0-37.0); MCV 93.7 fL (80.0-100.0); Platelet Count 557 k/uL (150-450); RBC 6.09 m/uL (4.30-5.90); RDW 14.7 % (11.5-15.5); WBC 10.2 k/uL (3.8-10.6)
[2019-02-14 15:16] VITALS: BP 136/82; PULSE 73; RESP 18
== END | disposition home or self-care (01) ==
LOC: PROCWHC3 13:54
PROVIDERS: ATTEND Internal Medicine
DX: D75.1 Secondary polycythemia (principal)
CPT/HCPCS: 36415; 85027; 99195

== ENCOUNTER → 2019-08-28 | Outpatient (CLI) | payer MEDICARE ==
[2019-08-28 15:07] LABS: Anisocytosis Slight; HCT 47.4 % (39.0-53.0); HGB 14.8 gm/dL (13.0-17.5); Hypochromasia Moderate; MCH 27.4 pg (25.0-35.0); MCHC 31.3 g/dL (31.0-37.0); MCV 87.6 fL (80.0-100.0); Mean Platelet Volume 7.3; Platelet Count 575 k/uL (150-450); RBC 5.41 m/uL (4.30-5.90); RDW 16.3 % (11.5-15.5); WBC 12.2 k/uL (3.8-10.6)
== END | disposition home or self-care (01) ==
LOC: LABWHC1 14:12
PROVIDERS: ATTEND Internal Medicine
DX: D47.3 Essential (hemorrhagic) thrombocythemia (principal)
CPT/HCPCS: 36415; 85027

== ENCOUNTER → 2020-05-08 | Outpatient (CLI) | payer MEDICARE ==
[2020-05-08 20:08] LABS: HCT 47.9 % (39.6-50.0); HGB 15.5 g/dL (13.0-17.0); MCH 32.4 pg (27.0-32.0); MCHC 32.4 g/dL (32.0-37.0); MCV 100.2 fL (80.0-97.0); Platelet Count 362 X 10*3/uL (140-440); RBC 4.78 X 10*6/uL (4.40-5.60); RDW 23.1 % (11.5-14.5)
== END | disposition home or self-care (01) ==
LOC: LABWHC1 14:28
PROVIDERS: ATTEND Internal Medicine
DX: D47.3 Essential (hemorrhagic) thrombocythemia (principal)
CPT/HCPCS: 36415; 85027

== ENCOUNTER → 2020-07-25 | Outpatient (CLI) | payer MEDICARE ==
[2020-07-25 20:26] LABS: HCT 45.7 % (39.6-50.0); HGB 15.3 g/dL (13.0-17.0); MCH 39.2 pg (27.0-32.0); MCHC 33.5 g/dL (32.0-37.0); MCV 117.2 fL (80.0-97.0); Mean Platelet Volume 9.7 fL (9.5-12.2); Platelet Count 407 X 10*3/uL (140-440); RDW 14.6 % (11.5-14.5); WBC 7.09 X 10*3/uL (4.50-10.00)
[2020-07-25 20:54] LABS: Basophils # (A) 0.07 X 10*3/uL (0.00-0.10); Eosinophils # (A) 0.12 X 10*3/uL (0.04-0.35); Eosinophils % (A) 1.7 %; Lymphocytes # (A) 1.16 X 10*3/uL (0.90-5.00); Lymphocytes % (A) 16.4 %; Macrocytosis (M) 3+; Monocytes # (A) 0.53 X 10*3/uL (0.20-1.00); Monocytes % (A) 7.5 %; Neutrophils # (A) 5.17 X 10*3/uL (1.80-7.70); Neutrophils % (A) 72.8 %
[2020-07-26 03:52] LABS: Albumin 4.6 g/dL (3.80-4.90); Albumin/Globulin Ratio 2.42 (1.60-3.17); Anion Gap 13.4 mmol/L (4.00-12.00); Calcium 9.2 mg/dL (8.7-10.3); Carbon Dioxide 22.6 mmol/L (21.6-31.8); Chol/HDL Ratio 5.21; Globulin 1.9 g/dL (1.6-3.3); LDL Cholesterol,Calculated 110.8 mg/dL (0.0-131.0); Non-African American GFR(CKD) 75.9 (60.0-200.0); Potassium 5.1 mmol/L (3.5-5.5); Total Bilirubin 1.1 mg/dL (0.2-1.2); Total Protein 6.5 g/dL (6.2-8.2); VLDL Calculation 32.2 mg/dL (5.00-40.00)
== END | disposition home or self-care (01) ==
LOC: LABWHC1 13:52
PROVIDERS: ATTEND Internal Medicine
DX: E78.2 Mixed hyperlipidemia (principal); D47.3 Essential (hemorrhagic) thrombocythemia
CPT/HCPCS: 36415; 80053; 80061; 84443; 85025

== ENCOUNTER → 2020-08-08 | Outpatient (CLI) | payer MEDICARE ==
[~2020-08-08] MED LIST changes: -MIDAZOLAM 2 MG/2 ML VIAL IV ONE; -SODIUM CHLORIDE 0.9% 1,000 ML IV ONE; +SODIUM CHLORIDE 0.9% 500 ML 500 ML in EMPTY BAG 1 BAG IV PRN
[2020-08-08 08:49] VITALS: TEMP 97.7
[2020-08-08 08:53] LABS: HCT 43.8 % (39.0-53.0); HGB 15.1 gm/dL (13.0-17.5); MCHC 34.5 g/dL (31.0-37.0); Macrocytosis Marked; Mean Platelet Volume 7.4; Platelet Count 356 k/uL (150-450); RBC 3.78 m/uL (4.30-5.90); WBC 7.5 k/uL (3.8-10.6)
[2020-08-08 09:37] VITALS: BP 135/83; PULSE 77; RESP 18
== END ==
LOC: PROCWHC3 08:29
PROVIDERS: ATTEND Internal Medicine
DX: D75.1 Secondary polycythemia (principal); Z88.3 Allergy status to other anti-infective agents
CPT/HCPCS: 36415; 85027; 99195

== ENCOUNTER 2020-10-04 06:55 | Day surgery (SDC) | payer MEDICARE ==
[2020-10-02 11:21] VITALS: BMI 25.0
[~2020-10-04 06:55] MED LIST changes: +LACTATED RINGERS 1,000 ML IV SCH; +LIDOCAINE 1% (10MG/ML) FOR IV START INTRADERMA PRN; -SODIUM CHLORIDE 0.9% 500 ML 500 ML in EMPTY BAG 1 BAG IV PRN
[2020-10-04 07:30] VITALS: PULSE 68; RESP 16; TEMP 97.4
[2020-10-04] MEDS ORDERED: LIDOCAINE 1% INJ 10MG/ML (20 ML MDV) ONE (07:30)
[2020-10-04] MEDS ORDERED: PROPOFOL 10 MG/ML 20 ML VIAL IV ONE (07:30)
--- NOTE | 2020-10-04 07:46 | P.PCN ---
Date of Procedure: 10/04/20 Procedure(s) Performed: BRIEF HISTORY: Patient is a 70-year-old pleasant white male scheduled for an elective colonoscopy as a part of evaluation of prior history of colon polyps. His last coloscopy was 5 years ago. PROCEDURE PERFORMED: Colonoscopy. PREOPERATIVE DIAGNOSIS: History of colon polyps. IV sedation per Anesthesia. PROCEDURE: After informed consent was obtained, the patient, was brought into the endoscopy unit. IV sedation was administered by Anesthesia under continuous monitoring. Digital rectal examination was normal. Initially the Olympus CF-160 flexible video colonoscope was then inserted in the rectum, gradually advanced into the cecum without any difficulty. Careful examination was performed as the scope was gradually being withdrawn. Ileocecal valve and the appendiceal orifice were visualized and appeared normal. Prep was excellent. Mucosa of the cecum, ascending colon, transverse colon, descending colon, sigmoid colon, and rectum appeared normal. Scattered left-sided diverticulosis. Retroflexion was performed in the rectum and no lesions were seen. The patient tolerated the procedure well. IMPRESSION: Normal-appearing colon from rectum to cecum wWith no evidence of colorectal neoplasia Scattered left sided diverticulosis. RECOMMENDATIONS: Findings of this examination were discussed with the patient as well as his family. He was advised to have a repeat screening colonoscopy in 5 years from now because of prior history of colon polyps.
[2020-10-04 08:08] VITALS: BP 135/83
== END 2020-10-04 08:33 | disposition home or self-care (01) ==
LOC: ORWHC2ENDO 06:55
PROVIDERS: ATTEND Internal Medicine Gastroenterology
DX: Z12.11 Encounter for screening for malignant neoplasm of colon (principal); Z86.010 Personal history of colon polyps; K57.90 Diverticulosis of intestine, part unspecified, without perforation or abscess without bleeding; E78.5 Hyperlipidemia, unspecified; Z88.1 Allergy status to other antibiotic agents; M19.90 Unspecified osteoarthritis, unspecified site; Z79.82 Long term (current) use of aspirin; Z79.899 Other long term (current) drug therapy
CPT/HCPCS: J2001; J2704; G0105; 45378

== ENCOUNTER → 2020-12-03 | Outpatient (CLI) | payer MEDICARE ==
[~2020-12-03] MED LIST changes: -LACTATED RINGERS 1,000 ML IV SCH; -LIDOCAINE 1% (10MG/ML) FOR IV START INTRADERMA PRN; +SODIUM CHLORIDE 0.9% 500 ML 500 ML in EMPTY BAG 1 BAG IV PRN
[2020-12-03 09:36] VITALS: RESP 16; TEMP 97.5
[2020-12-03 09:51] LABS: HCT 48.5 % (39.0-53.0); HGB 16.6 gm/dL (13.0-17.5); MCH 38.5 pg (25.0-35.0); MCHC 34.3 g/dL (31.0-37.0); MCV 112.3 fL (80.0-100.0); Macrocytosis Marked; Mean Platelet Volume 7.6; Platelet Count 304 k/uL (150-450); RBC 4.32 m/uL (4.30-5.90); RDW 12.1 % (11.5-15.5); WBC 7.9 k/uL (3.8-10.6)
[2020-12-03 10:11] VITALS: BP 132/72; PULSE 74
== END | disposition home or self-care (01) ==
LOC: PROCWHC3 09:22
PROVIDERS: ATTEND Internal Medicine
DX: D47.3 Essential (hemorrhagic) thrombocythemia (principal)
CPT/HCPCS: 36415; 85027; 99195

== ENCOUNTER → 2021-05-20 | Outpatient (CLI) | payer MEDICARE ==
[2021-05-20 12:43] VITALS: RESP 16; TEMP 97.8
[2021-05-20 13:02] LABS: HCT 49.7 % (39.0-53.0); HGB 16.5 gm/dL (13.0-17.5); MCH 37.4 pg (25.0-35.0); MCHC 33.2 g/dL (31.0-37.0); MCV 112.7 fL (80.0-100.0); Macrocytosis Marked; Mean Platelet Volume 7.4; Platelet Count 331 k/uL (150-450); RDW 14.4 % (11.5-15.5); WBC 6.3 k/uL (3.8-10.6)
[2021-05-20 13:31] VITALS: BP 126/76; PULSE 77
== END | disposition home or self-care (01) ==
LOC: PROCWHC3 12:16
PROVIDERS: ATTEND Internal Medicine
DX: D47.3 Essential (hemorrhagic) thrombocythemia (principal)
CPT/HCPCS: 36415; 85027; 99195

== ENCOUNTER → 2021-08-28 | Outpatient (CLI) | payer MEDICARE ==
[2021-08-28 08:53] VITALS: RESP 16; TEMP 97.8
[2021-08-28 09:22] LABS: Basophils # (A) 0.1 k/uL (0-0.2); Basophils % (A) 1 %; Eosinophils # (A) 0.2 k/uL (0-0.7); Eosinophils % (A) 2 %; HGB 15.9 gm/dL (13.0-17.5); Lymphocytes # (A) 1.1 k/uL (1.0-4.8); Lymphocytes % (A) 17 %; MCH 35.1 pg (25.0-35.0); MCHC 31.1 g/dL (31.0-37.0); MCV 112.7 fL (80.0-100.0); Macrocytosis Marked; Mean Platelet Volume 7.6; Monocytes # (A) 0.3 k/uL (0-1.0); Monocytes % (A) 5 %; Neutrophils # (A) 4.7 k/uL (1.3-7.7); Neutrophils % (A) 72 %; Platelet Count 307 k/uL (150-450); RBC 4.52 m/uL (4.30-5.90); RDW 13.6 % (11.5-15.5); WBC 6.5 k/uL (3.8-10.6)
[2021-08-28 09:56] VITALS: BP 135/72; PULSE 70
== END ==
LOC: PROCWHC3 08:25
PROVIDERS: ATTEND Internal Medicine
DX: D47.3 Essential (hemorrhagic) thrombocythemia (principal); Z88.1 Allergy status to other antibiotic agents
CPT/HCPCS: 36415; 85025; 99195

== ENCOUNTER → 2021-11-25 | Outpatient (CLI) | payer MEDICARE ==
[2021-11-26 11:29] LABS: Basophils # (A) 0.1 k/uL (0-0.2); Basophils % (A) 1 %; Eosinophils # (A) 0.2 k/uL (0-0.7); Eosinophils % (A) 2 %; HCT 50.5 % (39.0-53.0); Hypochromasia Slight; Lymphocytes % (A) 14 %; MCH 36.5 pg (25.0-35.0); MCHC 31.6 g/dL (31.0-37.0); MCV 115.5 fL (80.0-100.0); Macrocytosis Marked; Mean Platelet Volume 9.3; Monocytes # (A) 0.3 k/uL (0-1.0); Monocytes % (A) 5 %; Neutrophils # (A) 5.5 k/uL (1.3-7.7); Neutrophils % (A) 77 %; Platelet Count 339 k/uL (150-450); RBC 4.37 m/uL (4.30-5.90); RDW 14.3 % (11.5-15.5); WBC 7.1 k/uL (3.8-10.6)
== END | disposition home or self-care (01) ==
LOC: LABWHC1 21:31
PROVIDERS: ATTEND Internal Medicine
DX: D47.3 Essential (hemorrhagic) thrombocythemia (principal)
CPT/HCPCS: 36415; 85025

== ENCOUNTER → 2021-11-27 | Outpatient (CLI) | payer MEDICARE ==
[2021-11-27 13:27] VITALS: BP 141/91; PULSE 69; RESP 15; TEMP 98
== END ==
LOC: PROCWHC3 12:48
PROVIDERS: ATTEND Internal Medicine
DX: D47.3 Essential (hemorrhagic) thrombocythemia (principal); Z88.2 Allergy status to sulfonamides; Z88.1 Allergy status to other antibiotic agents
CPT/HCPCS: 99195

== ENCOUNTER → 2022-01-27 | Outpatient (CLI) | payer MEDICARE ==
[2022-01-27 11:10] VITALS: RESP 16; TEMP 98
[2022-01-27 11:28] LABS: HCT 48.7 % (39.0-53.0); HGB 15.8 gm/dL (13.0-17.5); MCH 34.6 pg (25.0-35.0); MCHC 32.4 g/dL (31.0-37.0); Macrocytosis Moderate; Mean Platelet Volume 8.1; Platelet Count 299 k/uL (150-450); RBC 4.57 m/uL (4.30-5.90); RDW 13.8 % (11.5-15.5); WBC 7.4 k/uL (3.8-10.6)
[2022-01-27 11:29] LABS: MCV 106.7 fL (80.0-100.0)
[2022-01-27 11:58] VITALS: BP 143/83; PULSE 71
== END ==
LOC: PROCWHC3 10:44
PROVIDERS: ATTEND Internal Medicine
DX: D47.3 Essential (hemorrhagic) thrombocythemia (principal); Z86.73 Personal history of transient ischemic attack (TIA), and cerebral infarction without residual deficits; Z88.1 Allergy status to other antibiotic agents; Z88.8 Allergy status to other drugs, medicaments and biological substances
CPT/HCPCS: 36415; 85027; 99195

== ENCOUNTER → 2022-04-21 | Outpatient (CLI) | payer MEDICARE ==
[2022-04-21 15:27] LABS: Basophils # (A) 0.13 X 10*3/uL (0.00-0.10); Basophils % (A) 1.6 %; Eosinophils # (A) 0.16 X 10*3/uL (0.04-0.35); HCT 48.4 % (39.6-50.0); HGB 15.6 g/dL (13.0-17.0); Immature Grans, Automated 0.7 %; Lymphocytes # (A) 1.29 X 10*3/uL (0.90-5.00); Lymphocytes % (A) 16.1 %; MCH 34.4 pg (27.0-32.0); MCHC 32.2 g/dL (32.0-37.0); MCV 106.8 fL (80.0-97.0); Mean Platelet Volume 9.7 fL (9.5-12.2); Monocytes # (A) 0.46 X 10*3/uL (0.20-1.00); Monocytes % (A) 5.7 %; NRBC Per 100 WBC 0 /100 WBCS (0.0-0.0); Neutrophils # (A) 5.93 X 10*3/uL (1.80-7.70); Neutrophils % (A) 73.9 %; Platelet Count 260 X 10*3/uL (140-440); RBC 4.53 X 10*6/uL (4.40-5.60); RDW 14.4 % (11.5-14.5); WBC 8.03 X 10*3/uL (4.50-10.00)
== END | disposition home or self-care (01) ==
LOC: LABWHC1 10:45
PROVIDERS: ATTEND Internal Medicine
DX: D47.3 Essential (hemorrhagic) thrombocythemia (principal)
CPT/HCPCS: 36415; 85025

== ENCOUNTER → 2022-04-23 | Outpatient (CLI) | payer MEDICARE ==
[2022-04-23 09:01] VITALS: RESP 16
[2022-04-23 09:17] VITALS: BP 143/85; PULSE 71; TEMP 97.6
== END | disposition home or self-care (01) ==
LOC: PROCWHC3 08:44
PROVIDERS: ATTEND Internal Medicine
DX: D47.3 Essential (hemorrhagic) thrombocythemia (principal); Z88.1 Allergy status to other antibiotic agents; Z79.82 Long term (current) use of aspirin; Z91.09 Other allergy status, other than to drugs and biological substances
CPT/HCPCS: 99195

== ENCOUNTER → 2022-07-21 | Outpatient (CLI) | payer MEDICARE ==
[2022-07-22 02:24] LABS: Basophils % (A) 1.2 %; Eosinophils # (A) 0.15 X 10*3/uL (0.04-0.35); Eosinophils % (A) 1.8 %; HCT 50.4 % (39.6-50.0); HGB 15.4 g/dL (13.0-17.0); Immature Grans, Automated 0.4 %; Lymphocytes # (A) 1.22 X 10*3/uL (0.90-5.00); MCHC 30.6 g/dL (32.0-37.0); MCV 104.8 fL (80.0-97.0); Mean Platelet Volume 10.5 fL (9.5-12.2); Monocytes # (A) 0.59 X 10*3/uL (0.20-1.00); Monocytes % (A) 7.2 %; NRBC Per 100 WBC 0 /100 WBCS (0.0-0.0); Neutrophils # (A) 6.06 X 10*3/uL (1.80-7.70); Neutrophils % (A) 74.4 %; Platelet Count 309 X 10*3/uL (140-440); RBC 4.81 X 10*6/uL (4.40-5.60); RDW 15.2 % (11.5-14.5); WBC 8.15 X 10*3/uL (4.50-10.00)
== END | disposition home or self-care (01) ==
LOC: LABWHC1 13:47
PROVIDERS: ATTEND Internal Medicine
DX: D47.3 Essential (hemorrhagic) thrombocythemia (principal)
CPT/HCPCS: 36415; 85025

== ENCOUNTER → 2022-07-23 | Outpatient (CLI) | payer MEDICARE ==
[2022-07-23 09:02] VITALS: RESP 16; TEMP 97.5
[2022-07-23 09:53] VITALS: BP 128/72; PULSE 89
== END ==
LOC: PROCWHC3 08:48
PROVIDERS: ATTEND Internal Medicine
DX: D47.3 Essential (hemorrhagic) thrombocythemia (principal); Z88.1 Allergy status to other antibiotic agents; Z88.8 Allergy status to other drugs, medicaments and biological substances
CPT/HCPCS: 99195

== ENCOUNTER → 2022-10-22 | Outpatient (CLI) | payer MEDICARE ==
[2022-10-22 08:59] VITALS: BP 138/77; PULSE 79; RESP 16; TEMP 98
== END ==
LOC: PROCWHC3 08:48
PROVIDERS: ATTEND Internal Medicine
DX: D75.1 Secondary polycythemia (principal); D47.3 Essential (hemorrhagic) thrombocythemia
CPT/HCPCS: 99195

== ENCOUNTER → 2023-01-20 | Outpatient (CLI) | payer MEDICARE ==
[2023-01-20 16:17] LABS: Basophils % (A) 1.1 %; Eosinophils # (A) 0.24 X 10*3/uL (0.04-0.35); Eosinophils % (A) 2.7 %; HCT 45.7 % (39.6-50.0); HGB 14.7 d/dL (13.0-17.0); Lymphocytes # (A) 1.34 X 10*3/uL (0.90-5.00); Lymphocytes % (A) 15.3 %; MCH 32.8 pg (27.0-32.0); MCHC 32.2 d/dL (32.0-37.0); Mean Platelet Volume 9.9 FL (9.5-12.2); Monocytes # (A) 0.55 X 10*3/uL (0.20-1.00); Monocytes % (A) 6.3 %; NRBC Per 100 WBC 0 X 10*3/uL (0.00-0.01); Neutrophils # (A) 6.45 X 10*3/uL (1.80-7.70); Platelet Count 327 X 10*3/uL (140-440); RBC 4.48 X 10*6/uL (4.40-5.60); RDW 14.7 % (11.5-14.5); WBC 8.73 X 10*3/uL (4.50-10.00)
[2023-01-20 16:25] LABS: ALT 27 U/L (10-49); AST 32 U/L (14-35); Albumin 4.3 d/dL (3.8-4.9); Albumin/Globulin Ratio 2.15 Ratio (1.60-3.17); Alkaline Phosphatase 88 U/L (41-126); Calcium 9.2 mg/dL (8.7-10.3); Carbon Dioxide 23.5 mmol/L (21.6-31.8); Chloride 102 mmol/L (96-109); Chol/HDL Ratio 3.97 Ratio; Glucose 97 mg/dL (70-110); LDL Cholesterol,Calculated 104.1 mg/dL (0.0-131.0); Potassium 4.4 mmol/L (3.5-5.5); Sodium 136 mmol/L (135-145); Total Bilirubin 0.4 mg/dL (0.3-1.2); Total Protein 6.3 d/dL (6.2-8.2)
[2023-01-20 17:51] LABS: Appearance,Urine Clear (Clear); Bilirubin,Urine Negative (Negative); Blood,Urine Negative (Negative); Color,Urine Light Yellow; Glucose,Urine (UA) Negative (Negative); Ketones,Urine Negative (Negative); Leukocyte Esterase,Urine Negative (Negative); Nitrite,Urine Negative (Negative); PH, Urine 5.5 (5.0-8.0); Protein,Urine Negative (Negative); Specific Gravity,Urine 1.012 (1.001-1.035); Urobilinogen,Urine <2.0 mg/dL (<2.0)
== END | disposition home or self-care (01) ==
LOC: LABWHC1 09:00
PROVIDERS: ATTEND Internal Medicine
DX: Z00.00 Encounter for general adult medical examination without abnormal findings (principal); E78.2 Mixed hyperlipidemia; D47.3 Essential (hemorrhagic) thrombocythemia; N40.0 Benign prostatic hyperplasia without lower urinary tract symptoms; N39.0 Urinary tract infection, site not specified; R73.09 Other abnormal glucose
CPT/HCPCS: 36415; 80053; 80061; 81003; 83036; 84443; 85025

== ENCOUNTER → 2023-01-21 | Outpatient (CLI) | payer MEDICARE ==
[2023-01-21 09:12] VITALS: PULSE 96; RESP 15; TEMP 97.5
[2023-01-21 09:34] VITALS: BP 151/92
== END ==
LOC: PROCWHC3 08:48
PROVIDERS: ATTEND Internal Medicine
DX: D47.3 Essential (hemorrhagic) thrombocythemia (principal); D75.1 Secondary polycythemia
CPT/HCPCS: 99195

== ENCOUNTER → 2023-04-20 | Outpatient (CLI) | payer MEDICARE ==
[2023-04-20 10:56] LABS: Basophils # (A) 0.1 k/uL (0-0.2); Basophils % (A) 1 %; Eosinophils # (A) 0.2 k/uL (0-0.7); Eosinophils % (A) 2 %; HCT 50.7 % (39.0-53.0); HGB 16.4 gm/dL (13.0-17.5); Hypochromasia Slight; Lymphocytes # (A) 1.2 k/uL (1.0-4.8); Lymphocytes % (A) 15 %; MCH 32.3 pg (25.0-35.0); MCHC 32.2 g/dL (31.0-37.0); MCV 100.3 fL (80.0-100.0); Macrocytosis Slight; Mean Platelet Volume 8.1; Monocytes # (A) 0.4 k/uL (0-1.0); Monocytes % (A) 6 %; Neutrophils % (A) 75 %; Platelet Count 303 k/uL (150-450); RBC 5.06 m/uL (4.30-5.90); RDW 15.6 % (11.5-15.5); WBC 8.1 k/uL (3.8-10.6)
== END | disposition home or self-care (01) ==
LOC: LABWHC1 10:37
PROVIDERS: ATTEND Internal Medicine
DX: D47.3 Essential (hemorrhagic) thrombocythemia (principal)
CPT/HCPCS: 36415; 85025

== ENCOUNTER → 2023-04-22 | Outpatient (CLI) | payer MEDICARE ==
[2023-04-22 09:32] VITALS: BP 136/88; PULSE 79; RESP 15; TEMP 97.5
== END ==
LOC: PROCWHC3 08:57
PROVIDERS: ATTEND Internal Medicine
DX: D47.3 Essential (hemorrhagic) thrombocythemia (principal); D45 Polycythemia vera
CPT/HCPCS: 99195

== ENCOUNTER 2023-06-15 23:26 | Inpatient (IN) | payer MEDICARE ==
--- NOTE | 2023-06-16 00:47 | ED ---
Abdominal Pain HPI - General Chief Complaint: Abdominal Pain Stated Complaint: Hernia Time Seen by Provider: 06/16/23 00:46 Source: patient Mode of arrival: ambulatory Limitations: no limitations - History of Present Illness Initial Comments: 72-year-old male presenting with chief complaint of abdominal pain. Started abruptly 2 hours ago. History of internal hernia, follows with surgeons at [facility]. Admits to nausea and vomiting. 72-year-old male present with chief complaint of abdominal pain. Patient started abruptly being sharp left lower quadrant pain about 2 hours ago. Patient has history of internal hernia, concern for incarcerated hernia. He does admit to nausea and vomiting. No fevers. No urinary symptoms. No diarrhea or constipation. No hematochezia or melena. - Related Data Home Medications Medication Instructions Recorded Confirmed Aspirin [Adult Low Dose Aspirin EC] 81 mg PO DAILY 02/14/19 04/22/23 Previous Rx's Medication Instructions Recorded Hydroxyurea [Hydrea] 500 mg PO DIRECTED #30 cap 05/18/17 Allergies Allergy/AdvReac Type Severity Reaction Status Date / Time bacitracin Allergy Rash/Hives Verified 06/15/23 23:41 [From Neosporin ([id number])] bacitracin zinc Allergy Rash/Hives Verified 06/15/23 23:41 [From Neosporin ([id number])] neomycin sulfate Allergy Rash/Hives Verified 06/15/23 23:41 [From Neosporin ([id number])] polymyxin B Allergy Rash/Hives Verified 06/15/23 23:41 [From Neosporin ([id number])] Review of Systems ROS Statement: Those systems with pertinent positive or pertinent negative responses have been documented in the HPI. ROS Other: All systems not noted in ROS Statement are negative. Past Medical History Past Medical History: Blood Disorder, Hyperlipidemia, Osteoarthritis (OA) Additional Past Medical History / Comment(s): ELEVATED PLATELET COUNT. POLYCYTHEMIA. History of Any Multi-Drug Resistant Organisms: None Reported Past Surgical History: Heart Catheterization, Hernia Repair, Orthopedic Surgery Additional Past Surgical History / Comment(s): RIGHT SHOULDER X 2 , ARTHROSCOPIC LEFT KNEE Past Anesthesia/Blood Transfusion Reactions: No Reported Reaction Past Psychological History: No Psychological Hx Reported Smoking Status: Never smoker Past Alcohol Use History: Occasional Past Drug Use History: None Reported - Past Family History Mother Family Medical History: CVA/TIA, Dementia General Exam - General Exam Comments Initial Comments: Visual Physical Exam Vital signs reviewed General: Well-appearing, nontoxic, no acute distress. Head: Normocephalic, atraumatic Eyes: PERRLA, EOMI ENT: Airway patent Chest: Nonlabored breathing Skin: No visual rash, normal skin tone Neuro: Alert and oriented 3 Musculoskeletal: No gross abnormalities Limitations: no limitations General appearance: alert, in no apparent distress Head exam: Present: atraumatic, normocephalic Eye exam: Present: normal appearance, EOMI Neck exam: Present: normal inspection Respiratory exam: Present: normal lung sounds bilaterally. Absent: respiratory distress, wheezes, rales, rhonchi, stridor Cardiovascular Exam: Present: regular rate, normal rhythm, normal heart sounds. Absent: systolic murmur, diastolic murmur, rubs, gallop, clicks GI/Abdominal exam: Present: soft, tenderness. Absent: distended, guarding, rebound, rigid Neurological exam: Present: alert, oriented X3 Psychiatric exam: Present: normal affect, normal mood Skin exam: Present: warm, dry Course Vital Signs 06/15/23 23:37 Temperature 98.7 F Pulse Rate 94 Respiratory 22 Rate Blood Pressure 173/92 O2 Sat by Pulse 95 Oximetry Medical Decision Making - Medical Decision Making Was pt. sent in by a medical professional or institution (, PA, HANGING FLAGS DECORATOR, urgent care, hospital, or long-term...) When possible be specific @ -No Did you speak to anyone other than the patient for history (EMS, parent, family, police, friend...)? What history was obtained from this source @ -No Did you review nursing and triage notes (agree or disagree)? Why? @ -I reviewed and agree with nursing and triage notes Were old charts reviewed (outside hosp., previous admission, EMS record, old EKG, old radiological studies, urgent care reports/EKG's, long-term records)? Report findings @ -No old charts were reviewed Differential Diagnosis (chest pain, altered mental status, abdominal pain women, abdominal pain men, vaginal bleeding, weakness, fever, dyspnea, syncope, headache, dizziness, GI bleed, back pain, seizure, CVA, palpatations, mental health, musculoskeletal)? @ -MDM Differential Abdominal Pain Men: Appendicitis, cholecystitis, diverticulosis, ischemic bowel, pancreatitis, hepatitis, UTI, gastroenteritis, AAA, incarcerated hernia, bowel obstruction, constipation, inflammatory bowel, hepatitis, peptic ulcer disease, splenic infarction, perforated viscus, testicular torsion... This is not meant to be an all-inclusive list EKG interpreted by me (3pts min.). @ -As above X-rays interpreted by me (1pt min.). @ -None done CT interpreted by me (1pt min.). @ -CT shows acute diverticulitis at the junction of the descending and sigmoid colons. Additionally there is small foci of free air in the left side of the abdomen concerning for perforation without evidence of free fluid or abscess. U/S interpreted by me (1pt. min.). @ -None done What testing was considered but not performed or refused? (CT, X-rays, U/S, labs)? Why? @ -None What meds were considered but not given or refused? Why? @ -None Did you discuss the management of the patient with other professionals (julieth flores i.eShravan Miles, PA, HANGING FLAGS DECORATOR, lab, RT, psych nurse, social work assistant, hay rake operator, teacher, inspectors and regulatory officers, bilingual patient support caseworker)? Give summary @ -I spoke with Dr. Estevez who accepted admission Was smoking cessation discussed for >3mins.? @ -No Was critical care preformed (if so, how long)? @ -No Were there social determinants of health that impacted care today? How? (Homelessness, low income, unemployed, alcoholism, drug addiction, transportation, low edu. Level, literacy, decrease access to med. care, retirement, r ehab)? @ -No Was there de-escalation of care discussed even if they declined (Discuss DNR or withdrawal of care, Hospice)? DNR status @ -No What co-morbidities impacted this encounter? (DM, HTN, Smoking, COPD, CAD, Cancer, CVA, ARF, Chemo, Hep., AIDS, mental health diagnosis, sleep apnea, morbid obesity)? @ -None Was patient admitted / discharged? Hospital course, mention meds given and route, prescriptions, significant lab abnormalities, going to OR and other pertinent info. @ -72-year-old male presenting with chief complaint of sharp left lower quadrant pain that started abruptly this evening. Positive nausea and vomiting. Workup was initiated by triage. WBC 14.2. The patient is later brought back to a room. I performed a quick note portion of the visit and then continue to follow the patient throughout his course in the ED. He states that his pain has improved and he is feeling much better. CT is positive for diverticulitis with small kind of air concerning for perforation. Patient is started on Zosyn and IV fluids. NPO. Admitted. Patient is agreeable with this plan. I discussed this case with my attending Dr. Martinez Undiagnosed new problem with uncertain prognosis? @ -No Drug Therapy requiring intensive monitoring for toxicity (Heparin, Nitro, Insulin, Cardizem)? @ -No Were any procedures done? @ -No Diagnosis/symptom? @ -Diverticulitis with perforation Acute, or Chronic, or Acute on Chronic? @ -Acute Uncomplicated (without systemic symptoms) or Complicated (systemic symptoms)? @ -Complicated Side effects of treatment? @ -No Exacerbation, Progression, or Severe Exacerbation? @ -No Poses a threat to life or bodily function? How? (Chest pain, [place], [place], pneumonia, PE, COPD, DKA, ARF, appy, cholecystitis, CVA, Diverticulitis, Homicidal, Suicidal, threat to staff... and all critical care pts) @ -Yes - Lab Data Result diagrams: 06/16/23 00:50 06/16/23 00:50 Lab Results 06/16/23 06/16/23 06/16/23 Range/Units 00:50 00:50 00:50 WBC 14.2 H (3.8-10.6) k/uL RBC 5.15 (4.30-5.90) m/uL Hgb 15.6 (13.0-17.5) gm/dL Hct 51.7 (39.0-53.0) % MCV 100.3 H (80.0-100.0) fL MCH 30.2 (25.0-35.0) pg MCHC 30.1 L (31.0-37.0) g/dL RDW 15.9 H (11.5-15.5) % Plt Count 464 H (150-450) k/uL MPV 7.7 Neutrophils % 88 % Lymphocytes % 6 % Monocytes % 3 % Eosinophils % 2 % Basophils % 1 % Neutrophils # 12.4 H (1.3-7.7) k/uL Lymphocytes # 0.8 L (1.0-4.8) k/uL Monocytes # 0.4 (0-1.0) k/uL Eosinophils # 0.3 (0-0.7) k/uL Basophils # 0.1 (0-0.2) k/uL Hypochromasia Slight Macrocytosis Slight Sodium 143 (137-145) mmol/L Potassium 4.2 (3.5-5.1) mmol/L Chloride 107 (98-107) mmol/L Carbon Dioxide 26 (22-30) mmol/L Anion Gap 10 mmol/L BUN 19 (9-20) mg/dL Creatinine 0.93 (0.66-1.25) mg/dL Est GFR (CKD-EPI)AfAm >90 (>60 ml/min/1.73 sqM) Est GFR (CKD-EPI)NonAf 82 (>60 ml/min/1.73 sqM) Glucose 136 H (74-99) mg/dL Plasma Lactic Acid Khoa (0.7-2.0) mmol/L Calcium 9.7 (8.4-10.2) mg/dL Total Bilirubin 0.5 (0.2-1.3) mg/dL AST 40 (17-59) U/L ALT 31 (4-49) U/L Alkaline Phosphatase 98 (38-126) U/L Total Protein 8.0 (6.3-8.2) g/dL Albumin 5.0 (3.5-5.0) g/dL Amylase 67 (30-110) U/L Lipase 159 (23-300) U/L Urine Color Yellow Urine Appearance Clear (Clear) Urine pH 6.5 (5.0-8.0) Ur Specific Gallagher 1.028 (1.001-1.035) Urine Protein Trace H (Negative) Urine Glucose (UA) Negative (Negative) Urine Ketones Negative (Negative) Urine Blood Negative (Negative) Urine Nitrite Negative (Negative) Urine Bilirubin Negative (Negative) Urine Urobilinogen <2.0 (<2.0) mg/dL Ur Leukocyte Esterase Negative (Negative) 06/16/23 Range/Units 00:50 WBC (3.8-10.6) k/uL RBC (4.30-5.90) m/uL Hgb (13.0-17.5) gm/dL Hct (39.0-53.0) % MCV (80.0-100.0) fL MCH (25.0-35.0) pg MCHC (31.0-37.0) g/dL RDW (11.5-15.5) % Plt Count (150-450) k/uL MPV Neutrophils % % Lymphocytes % % Monocytes % % Eosinophils % % Basophils % % Neutrophils # (1.3-7.7) k/uL Lymphocytes # (1.0-4.8) k/uL Monocytes # (0-1.0) k/uL Eosinophils # (0-0.7) k/uL Basophils # (0-0.2) k/uL Hypochromasia Macrocytosis Sodium (137-145) mmol/L Potassium (3.5-5.1) mmol/L Chloride (98-107) mmol/L Carbon Dioxide (22-30) mmol/L Anion Gap mmol/L BUN (9-20) mg/dL Creatinine (0.66-1.25) mg/dL Est GFR (CKD-EPI)AfAm (>60 ml/min/1.73 sqM) Est GFR (CKD-EPI)NonAf (>60 ml/min/1.73 sqM) Glucose (74-99) mg/dL Plasma Lactic Acid Khoa 1.8 (0.7-2.0) mmol/L Calcium (8.4-10.2) mg/dL Total Bilirubin (0.2-1.3) mg/dL AST (17-59) U/L ALT (4-49) U/L Alkaline Phosphatase (38-126) U/L Total Protein (6.3-8.2) g/dL Albumin (3.5-5.0) g/dL Amylase (30-110) U/L Lipase (23-300) U/L Urine Color Urine Appearance (Clear) Urine pH (5.0-8.0) Ur Specific Gallagher (1.001-1.035) Urine Protein (Negative) Urine Glucose (UA) (Negative) Urine Ketones (Negative) Urine Blood (Negative) Urine Nitrite (Negative) Urine Bilirubin (Negative) Urine Urobilinogen (<2.0) mg/dL Ur Leukocyte Esterase (Negative) Disposition Clinical Impression: Diverticulitis of colon with perforation Disposition: ADMITTED IP TO THIS HOSP Condition: Stable Time of Disposition: 02:58
[2023-06-16 01:11] LABS: Basophils # (A) 0.1 k/uL (0-0.2); Basophils % (A) 1 %; Eosinophils # (A) 0.3 k/uL (0-0.7); Eosinophils % (A) 2 %; HCT 51.7 % (39.0-53.0); HGB 15.6 gm/dL (13.0-17.5); Hypochromasia Slight; Lymphocytes # (A) 0.8 k/uL (1.0-4.8); Lymphocytes % (A) 6 %; MCH 30.2 pg (25.0-35.0); MCHC 30.1 g/dL (31.0-37.0); MCV 100.3 fL (80.0-100.0); Macrocytosis Slight; Mean Platelet Volume 7.7; Monocytes # (A) 0.4 k/uL (0-1.0); Monocytes % (A) 3 %; Neutrophils # (A) 12.4 k/uL (1.3-7.7); Neutrophils % (A) 88 %; Platelet Count 464 k/uL (150-450); RBC 5.15 m/uL (4.30-5.90); RDW 15.9 % (11.5-15.5); WBC 14.2 k/uL (3.8-10.6)
[2023-06-16 01:22] LABS: ALT 31 U/L (4-49); AST 40 U/L (17-59); African American GFR (CKD) >90 (>60 ml/min/1.73 sqM); Alkaline Phosphatase 98 U/L (38-126); Amylase 67 U/L (30-110); Anion Gap 10 mmol/L; Blood Urea Nitrogen 19 mg/dL (9-20); Calcium 9.7 mg/dL (8.4-10.2); Carbon Dioxide 26 mmol/L (22-30); Chloride 107 mmol/L (98-107); Glucose 136 mg/dL (74-99); Lipase 159 U/L (23-300); Non-African American GFR(CKD) 82 (>60 ml/min/1.73 sqM); Potassium 4.2 mmol/L (3.5-5.1); Sodium 143 mmol/L (137-145); Total Bilirubin 0.5 mg/dL (0.2-1.3)
[2023-06-16 01:54] LABS: Appearance,Urine Clear (Clear); Bilirubin,Urine Negative (Negative); Blood,Urine Negative (Negative); Color,Urine Yellow; Glucose,Urine (UA) Negative (Negative); Ketones,Urine Negative (Negative); Leukocyte Esterase,Urine Negative (Negative); Nitrite,Urine Negative (Negative); PH, Urine 6.5 (5.0-8.0); Protein,Urine Trace (Negative); Specific Gravity,Urine 1.028 (1.001-1.035); Urobilinogen,Urine <2.0 mg/dL (<2.0)
--- NOTE | 2023-06-16 02:44 | CT ---
EXAM: CT Abdomen and Pelvis With Intravenous Contrast CLINICAL HISTORY: ITS.REASON CT Reason: abdominal pain TECHNIQUE: Axial computed tomography images of the abdomen and pelvis with intravenous contrast. CTDI is 18.6 mGy and DLP is 1002.6 mGy-cm. This CT exam was performed using one or more of the following dose reduction techniques: automated exposure control, adjustment of the mA and/or kV according to patient size, and/or use of iterative reconstruction technique. COMPARISON: No relevant prior studies available. FINDINGS: Lung bases: Lung bases demonstrate bilateral dependent atelectasis. ABDOMEN: Liver: Unremarkable. No mass. Gallbladder and bile ducts: Unremarkable. No calcified stones. No ductal dilation. Pancreas: Unremarkable. No mass. No ductal dilation. Spleen: Mild splenomegaly measuring up to 14 cm. Adrenals: Unremarkable. No mass. Kidneys and ureters: Unremarkable. No solid mass. No hydronephrosis. Stomach and bowel: Acute diverticulitis at the junction of the descending and sigmoid colons. Additionally there is small foci of free air in the left side of the abdomen concerning for a perforation without evidence of free fluid or abscess. Severe left colon and sigmoid diverticulosis. No obstruction. PELVIS: Appendix: No findings to suggest acute appendicitis. Bladder: Unremarkable. No mass. Reproductive: Unremarkable as visualized. ABDOMEN and PELVIS: Intraperitoneal space: See above. Bones/joints: No acute fracture. No dislocation. Soft tissues: Unremarkable. Vasculature: Unremarkable. No abdominal aortic aneurysm. Lymph nodes: Unremarkable. No enlarged lymph nodes. IMPRESSION: Acute diverticulitis at the junction of the descending and sigmoid colons. Additionally there is small foci of free air in the left side of the abdomen concerning for a perforation without evidence of free fluid or abscess. Mild splenomegaly. <MYCVCSECTION> Communications: 06/16/23 02:50 Call Doctor Regarding Pneumoperitoneum, new or unexpected, called Dr. Villegas on 06/15 02:50 (-04:00)
[2023-06-16] MEDS ORDERED: ONDANSETRON 4 MG/2 ML VIAL IVP PRN (02:49)
[2023-06-16] MEDS ORDERED: MORPHINE SULFATE 4 MG/ML SYRINGE IVP PRN (02:49)
[2023-06-16] MEDS ORDERED: NALOXONE 0.4 MG/ML 1 ML VIAL IV PRN (03:06)
[2023-06-16] MEDS ORDERED: KETOROLAC 15 MG/ML 1 ML VIAL IVP PRN (03:06)
[2023-06-16] MEDS: SODIUM CHLORIDE 0.9% 1,000 ML IV ONE (03:15)
[2023-06-16] MEDS: PIPERACILLIN-TAZOBACTAM 3.375 GM in SODIUM CHLORIDE 0.9% 100 ML IVPB STA (03:23)
[2023-06-16] MEDS: SODIUM CHLORIDE 0.9% 1,000 ML IV SCH (05:20)
[2023-06-16] MEDS ORDERED: PIPERACILLIN-TAZOBACTAM 3.375 GM in SODIUM CHLORIDE 0.9% 100 ML IVPB SCH (08:15)
[2023-06-16] MEDS: PIPERACILLIN-TAZOBACTAM 3.375 GM in SODIUM CHLORIDE 0.9% 100 ML IVPB SCH (11:52)
--- NOTE | 2023-06-16 15:03 | P.GSHP ---
History of Present Illness H&P Date: 06/16/23 CHIEF COMPLAINT: Abdominal pain HISTORY OF PRESENT ILLNESS: This is a 72-year-old male who presents the hospital with complaints of left lower quadrant abdominal pain that started yesterday at 10:30 in the evening. Patient rates his pain that night about a 9 out of 10. Pain currently down to a 5 out of 10. He does have a history of diverticulosis. But has never had diverticulitis. Last colonoscopy was in September 2020 with evidence of diverticulosis. Patient had CT scan abdomen pelvis with di verticulitis with perforation. He is on antibiotics. He has been having bowel movements. Denies any nausea or vomiting. Past surgical history inguinal hernia repair about 4 years ago. Patient reports that he was told that he has another beginning of left inguinal hernia that is followed by surgeon out of [facility]. PAST MEDICAL HISTORY: Elevated platelet count, polycythemia, hyperlipidemia, coronary artery disease no cardiac stents PAST SURGICAL HISTORY: Hernia repair MEDICATIONS: See below ALLERGIES: See below SOCIAL HISTORY: No illicit drug use. REVIEW OF SYSTEMS: CONSTITUTIONAL: Denies fever or chills. HEENT: Denies blurred vision, vision changes, or eye pain. Denies hemoptysis CARDIOVASCULAR: Denies chest pain or pressure. RESPIRATORY: No shortness of breath. GASTROINTESTINAL: See HPI for pertinent findings HEMATOLOGIC: Denies bleeding disorders. GENITOURINARY: Denies any blood in urine or increased urinary frequency. SKIN: Denies pruitis. Denies rash. PHYSICAL EXAM: VITAL SIGNS: Reviewed GENERAL: Well-developed in no acute distress. HEENT: No sclera icterus. Extraocular movements grossly intact. Moist buccal mucosa. Head is atraumatic, normocephalic. No nasal drainage. ABDOMEN: Soft. Nondistended. Tenderness left lower quadrant NEUROLOGIC: Alert and oriented. Cranial nerves II through XII grossly intact. LABORATORY DATA: WBC 14.2 Hgb 15.6 platelets 464 Sodium is 143 potassium 4.2 creatinine 0.93 Lactic acid 1.8 LFTs and lipase normal Urinalysis negative for infection IMAGING: CT scan abdomen pelvis reports acute diverticulitis of the descending colon and sigmoid colon. Small foci of free air in the left side of the abdomen concerni ng for perforation without evidence of free fluid or abscess. Mild splenomegaly. ASSESSMENT: 1. Acute diverticulitis with perforation PLAN: -Start clear liquid diet -Repeat CBC in a.m. -Continue antibiotics -Continue IV fluids -Continue supportive care -Continue to monitor -Recommend colonoscopy in about 4 to 6 weeks after treatment of diverticulitis Physician Line Lead note has been reviewed by physician. Signing provider agrees with the documented findings, assessment, and plan of care. Past Medical History Past Medical History: Blood Disorder, Hyperlipidemia, Osteoarthritis (OA) Additional Past Medical History / Comment(s): ELEVATED PLATELET COUNT. POLYCYTHEMIA. History of Any Multi-Drug Resistant Organisms: None Reported Past Surgical History: Heart Catheterization, Hernia Repair, Orthopedic Surgery Additional Past Surgical History / Comment(s): RIGHT SHOULDER X 2 , ARTHROSCOPIC LEFT KNEE Past Anesthesia/Blood Transfusion Reactions: No Reported Reaction Past Psychological History: No Psychological Hx Reported Smoking Status: Never smoker Past Alcohol Use History: Occasional Past Drug Use History: None Reported - Past Family History Mother Family Medical History: CVA/TIA, Dementia Medications and Allergies Home Medications Medication Instructions Recorded Confirmed Type Hydroxyurea [Hydrea] 500 mg PO BID 06/16/23 06/16/23 History Allergies Allergy/AdvReac Type Severity Reaction Status Date / Time bacitracin Allergy Rash/Hives Verified 06/16/23 07:40 [From Neosporin ([id number])] bacitracin zinc Allergy Rash/Hives Verified 06/16/23 07:40 [From Neosporin ([id number])] neomycin sulfate Allergy Rash/Hives Verified 06/16/23 07:40 [From Neosporin ([id number])] polymyxin B Allergy Rash/Hives Verified 06/16/23 07:40 [From Neosporin ([id number])] Surgical - Exam Vital Signs Temp Pulse Resp BP Pulse Ox 98.7 F 94 22 173/92 95 06/15/23 23:37 06/15/23 23:37 06/15/23 23:37 06/15/23 23:37 06/15/23 23:37 Results - Labs 06/16/23 00:50 06/16/23 00:50 Abnormal Lab Results - Last 24 Hours (Table) 06/16/23 06/16/23 06/16/23 Range/Units 00:50 00:50 00:50 WBC 14.2 H (3.8-10.6) k/uL MCV 100.3 H (80.0-100.0) fL MCHC 30.1 L (31.0-37.0) g/dL RDW 15.9 H (11.5-15.5) % Plt Count 464 H (150-450) k/uL Neutrophils # 12.4 H (1.3-7.7) k/uL Lymphocytes # 0.8 L (1.0-4.8) k/uL Glucose 136 H (74-99) mg/dL Urine Protein Trace H (Negative) Diabetes panel 06/16/23 Range/Units 00:50 Sodium 143 (137-145) mmol/L Potassium 4.2 (3.5-5.1) mmol/L Chloride 107 (98-107) mmol/L Carbon Dioxide 26 (22-30) mmol/L BUN 19 (9-20) mg/dL Creatinine 0.93 (0.66-1.25) mg/dL Glucose 136 H (74-99) mg/dL Calcium 9.7 (8.4-10.2) mg/dL AST 40 (17-59) U/L ALT 31 (4-49) U/L Alkaline Phosphatase 98 (38-126) U/L Total Protein 8.0 (6.3-8.2) g/dL Albumin 5.0 (3.5-5.0) g/dL Calcium panel 06/16/23 Range/Units 00:50 Calcium 9.7 (8.4-10.2) mg/dL Albumin 5.0 (3.5-5.0) g/dL Pituitary panel 06/16/23 Range/Units 00:50 Sodium 143 (137-145) mmol/L Potassium 4.2 (3.5-5.1) mmol/L Chloride 107 (98-107) mmol/L Carbon Dioxide 26 (22-30) mmol/L BUN 19 (9-20) mg/dL Creatinine 0.93 (0.66-1.25) mg/dL Glucose 136 H (74-99) mg/dL Calcium 9.7 (8.4-10.2) mg/dL Adrenal panel 06/16/23 Range/Units 00:50 Sodium 143 (137-145) mmol/L Potassium 4.2 (3.5-5.1) mmol/L Chloride 107 (98-107) mmol/L Carbon Dioxide 26 (22-30) mmol/L BUN 19 (9-20) mg/dL Creatinine 0.93 (0.66-1.25) mg/dL Glucose 136 H (74-99) mg/dL Calcium 9.7 (8.4-10.2) mg/dL Total Bilirubin 0.5 (0.2-1.3) mg/dL AST 40 (17-59) U/L ALT 31 (4-49) U/L Alkaline Phosphatase 98 (38-126) U/L Total Protein 8.0 (6.3-8.2) g/dL Albumin 5.0 (3.5-5.0) g/dL
[2023-06-16] MEDS: HEPARIN SODIUM,PORCINE 5,000 UNIT/ML 1 ML VIAL SQ SCH (16:52)
[2023-06-16] MEDS: HYDROXYUREA 500 MG CAP PO SCH (21:28)
[2023-06-17] MEDS: PANTOPRAZOLE 40 MG/10 ML VIAL IVP SCH (09:12)
[2023-06-17 11:46] LABS: BUN/Creat Ratio 8.89 Ratio (12.00-20.00); Carbon Dioxide 23.4 mmol/L (21.6-31.8); Chloride 106 mmol/L (96-109); Glucose 87 mg/dL (70-110); Potassium 4.4 mmol/L (3.5-5.5); Sodium 139 mmol/L (135-145)
[2023-06-17 11:47] LABS: ALT 43 U/L (10-49); AST 42 U/L (14-35); Alkaline Phosphatase 82 U/L (41-126); Calcium 8.8 mg/dL (8.7-10.3); Total Bilirubin 1.1 mg/dL (0.3-1.2)
[2023-06-17 12:11] LABS: Basophils % (A) 0.9 %; Eosinophils % (A) 1.9 %; HCT 40.4 % (39.6-50.0); HGB 12.9 g/dL (13.0-17.0); Lymphocytes # (A) 1.32 X 10*3/uL (0.90-5.00); Lymphocytes % (A) 12.3 %; MCH 30.9 pg (27.0-32.0); MCHC 31.9 g/dL (32.0-37.0); MCV 96.7 FL (80.0-97.0); Monocytes # (A) 0.79 X 10*3/uL (0.20-1.00); Monocytes % (A) 7.3 %; NRBC Per 100 WBC 0 X 10*3/uL (0.00-0.01); Neutrophils % (A) 77.1 %; Platelet Count 302 X 10*3/uL (140-440); RBC 4.18 X 10*6/uL (4.40-5.60); RDW 15.9 % (11.5-14.5); WBC 10.76 X 10*3/uL (4.50-10.00)
--- NOTE | 2023-06-17 12:40 | P.PN ---
Subjective Progress Note Date: 06/17/23 Patient feels better. He states his pain is improved. He is tolerating clear liquids. On exam vital signs are stable. Abdomen soft. There is mild tenderness left lower quadrant. Patient will have his diet advanced. We dysphagia discharge home tomorrow. Objective - Vital Signs Vital signs: Vital Signs Temp 98.7 F 06/17/23 08:00 Pulse 75 06/17/23 08:00 Resp 16 06/17/23 08:00 BP 142/84 06/17/23 08:00 Pulse Ox 95 06/17/23 08:00 FiO2 Intake & Output 06/16/23 06/17/23 06/17/23 18:59 06:59 18:59 Weight 77.111 kg Other: Voiding Method Toilet Toilet # Voids 2 2 - Labs CBC & Chem 7: 06/17/23 06:37 06/17/23 06:37 Labs: Abnormal Lab Results - Last 24 Hours (Table) 06/17/23 06/17/23 Range/Units 06:37 06:37 WBC 10.76 H (4.50-10.00) X 10*3/uL RBC 4.18 L (4.40-5.60) X 10*6/uL Hgb 12.9 L (13.0-17.0) g/dL MCHC 31.9 L (32.0-37.0) g/dL RDW 15.9 H (11.5-14.5) % Immature Gran # 0.05 H (0.00-0.04) X 10*3/uL Neutrophils # 8.30 H (1.80-7.70) X 10*3/uL BUN 8.0 L (9.0-27.0) mg/dL BUN/Creatinine Ratio 8.89 L (12.00-20.00) Ratio AST 42 H (14-35) U/L Total Protein 6.0 L (6.2-8.2) g/dL
--- NOTE | 2023-06-17 13:23 | P.CONS ---
History of Present Illness - Reason for Consult Consult date: 06/16/23 Medical Management Requesting physician: Aman Estevez - Chief Complaint Acute diverticulitis with perforated viscus. - History of Present Illness HISTORY OF PRESENT ILLNESS: This is a 72-year-old male with a previous medical history significant for essential thrombocythemia, history of mixed hyperlipidemia, coronary artery disease, osteoarthritis of the left knee, patient presented to the emergency department at [facility] last night after he had a tremendous amount of pain in the left lower quadrant after he had an ice cream cake but he stated that he has been using some notes over the last week or so, patient stated that the pain was sharp in the left lower quadrant associated with significant amount of pain he was not able to go to the bathroom, he ended up coming to the emergency department at [facility] after he was nauseated, he felt that his abdomen is quite distended as well, he denies any fever or chills he denies any recent travel, he denies any blood in the stool, he denies any recent change in his medication, patient ended up going for a CT scan of the abdomen and pelvis that did show evidence of diverticulitis in the sigmoid region with possible small perforation due to the free air in the abdomen patient was a dmitted under general surgery and I was asked to see the patient for medical management he was placed on clear liquid diet, he was started on IV fluid resuscitation in the form of normal saline, he was placed on Zosyn 3.375 g IV piggyback every 8 hours, we were consulted for his medical management. REVIEW OF SYSTEMS: Constitutional: No documented fever, no chills, no night sweats. No weight josé miguel nge. No weakness, fatigue or lethargy. No daytime sleepiness. EENT: No headache. No blurred vision or double vision, no loss of vision. No loss of Hearing, no ringing in the ears, no dizziness. No nasal drainage or congestion. No epistaxis. No sore throat. Lungs: No shortness of breath, no cough, no sputum production. No wheezing. Reports dyspnea with activity. Cardiovascular: No chest pain, no lower extremity edema. No palpitations. No paroxysmal nocturnal dyspnea. No orthopnea. No lightheadedness or dizziness. No syncopal episodes. Abdominal: Reports abdominal pain. No nausea, vomiting. No diarrhea. No constipation. No bloody or tarry stools reports loss of appetite. Genitourinary: No dysuria, increased frequency, urgency. No urinary retention. Musculoskeletal: No myalgias. No muscle weakness, no gait dysfunction, no frequent falls. No back pain. No neck pain. Integumentary: No wounds, no lesions. No rash or pruritus. No unusual bruising. No change in hair or nails. Neurologic: No aphasia. No facial droop. No change in mentation. No head injury. No headache. No paralysis. No paresthesia. Psychiatric: No depression. No anxiety. No mood swings. Endocrine: No abnormal blood sugars. No weight change. PAST MEDICAL HISTORY: Essential thrombocythemia Coronary artery disease. Mixed hyperlipidemia Osteoarthritis of the left knee. PAST SURGICAL HISTORY: Bilateral inguinal hernia repair Transesophageal echocardiogram 2018 Bilateral rotator cuff shoulder surgery repair Left cheekbone surgery Septum surgery Left heart catheterization 2018. SOCIAL HISTORY: Patient is a lifelong non-smoker, he drinks occasionally, he denies any drug use or abuse, he lives with his . FAMILY HISTORY: Father is alive 90-year-old with no health issues, mother at age of 85 from Alzheimer's dementia and had history of hypertension, patient has 3 brothers 1 with rectal cancer at the age of 67, 1 with ear tumor and the third 1 is okay, patient has 2 sisters 1 with asthma the other 1 is okay, patient has 1 daughter and 1 son no major medical problems. PHYSICAL EXAMINATION: General: 72-year-old male is lying down in bed in distress, HEENT: Head is atraumatic, normocephalic, pupils were equal round reactive to light and recommendation, extraocular muscle movement were intact, sclera nonicteric, conjunctivae were pale, mucous membranes of the mouth are somewhat dry. Neck: Supple, no JVP, normal carotid upstroke bilaterally, no lymphadenopathy. Chest: Decreased breath sounds at the bases, few rhonchi, no expiratory wheezes, no chest wall tenderness, no intercostal retractions. Heart: First heart sound is normal, second heart sound is normal there is systolic ejection murmur 2/6 located in the left sternal border. Abdomen: Moderate tenderness of the left lower quadrant no rebound or guarding positive bowel sound positive for distention, positive for bowel sounds. Extremities: There is no edema no calf tenderness DP +2 bilaterally. Neurologic examination: Patient is awake alert and oriented x3 , cranial nerves II-12 appear grossly intact, muscle power were 5 out of 5 in upper extremities and 5 out of 5 in bilateral lower extremities, deep tendon reflexes normal bilaterally. ASSESSMENT AND PLAN: 1. Acute sigmoid diverticulitis with possible microperforation. Continue patient on clear liquid diet for now, continue patient on current pain management as outlined by general surgery, continue patient on Zosyn 3.375 g piggyback every 8 hours, monitor the patient very closely, repeat the x-ray in the morning, we will continue to follow-up with the patient, repeat CBC tomorrow morning. 2. Leukocytosis likely due to diverticulitis with microperforation. Continue patient on IV antibiotic, continue IV fluid repeat CBC tomorrow morning. 3. History of coronary artery disease of [place] arteries without evidence of angina pectoris at this time, continue to monitor the patient very closely. 4. Mixed hyperlipidemia. Patient is not taking any statin at this time. 5. History of essential thrombocythemia. Continue patient on hydroxyurea 500 mg orally twice every day. 6. History of osteoarthritis of the left knee. Continue patient on current pain management. 7. DVT prophylaxis. Heparin 5000 units subcutaneously every 8 hours. 8. GI prophylaxis. Continue Protonix 40 mg IV push every 24 hours. 9. Thank you for the consult we will follow with you. Past Medical History Past Medical History: Blood Disorder, Hyperlipidemia, Osteoarthritis (OA) Additional Past Medical History / Comment(s): ELEVATED PLATELET COUNT. POLYCYTHEMIA. History of Any Multi-Drug Resistant Organisms: None Reported Past Surgical History: Heart Catheterization, Hernia Repair, Orthopedic Surgery Additional Past Surgical History / Comment(s): RIGHT SHOULDER X 2 , ARTHROSCOPIC LEFT KNEE Past Anesthesia/Blood Transfusion Reactions: No Reported Reaction Past Psychological History: No Psychological Hx Reported Smoking Status: Never smoker Past Alcohol Use History: Occasional Past Drug Use History: None Reported - Past Family History Mother Family Medical History: CVA/TIA, Dementia Medications and Allergies Home Medications Medication Instructions Recorded Confirmed Type Hydroxyurea [Hydrea] 500 mg PO BID 06/16/23 06/16/23 History Allergies Allergy/AdvReac Type Severity Reaction Status Date / Time bacitracin Allergy Rash/Hives Verified 06/16/23 07:40 [From Neosporin ([id number])] bacitracin zinc Allergy Rash/Hives Verified 06/16/23 07:40 [From Neosporin ([id number])] neomycin sulfate Allergy Rash/Hives Verified 06/16/23 07:40 [From Neosporin ([id number])] polymyxin B Allergy Rash/Hives Verified 06/16/23 07:40 [From Neosporin ([id number])] Physical Exam Vitals: Vital Signs Temp Pulse Pulse Resp BP BP Pulse Ox 06/16/23 14:08 98.3 F 79 16 162/78 94 L 06/16/23 13:11 98.1 F 82 20 158/84 97 06/16/23 11:57 88 20 145/88 95 06/16/23 07:45 98.6 F 82 18 149/77 95 06/16/23 06:25 99.6 F 83 18 151/70 95 06/15/23 23:37 98.7 F 94 22 173/92 95 Intake and Output 06/15/23 06/16/23 06/16/23 22:59 06:59 14:59 Other: Weight 77.111 kg 77.111 kg Results CBC & Chem 7: 06/17/23 06:37 06/17/23 06:37 Labs: Abnormal Lab Results - Last 24 Hours (Table) 06/16/23 06/16/23 06/16/23 Range/Units 00:50 00:50 00:50 WBC 14.2 H (3.8-10.6) k/uL MCV 100.3 H (80.0-100.0) fL MCHC 30.1 L (31.0-37.0) g/dL RDW 15.9 H (11.5-15.5) % Plt Count 464 H (150-450) k/uL Neutrophils # 12.4 H (1.3-7.7) k/uL Lymphocytes # 0.8 L (1.0-4.8) k/uL Glucose 136 H (74-99) mg/dL Urine Protein Trace H (Negative)
--- NOTE | 2023-06-17 13:25 | P.PN ---
Subjective Progress Note Date: 06/17/23 HISTORY OF PRESENT ILLNESS: This is a 72-year-old male with a previous medical history significant for essential thrombocythemia, history of mixed hyperlipidemia, coronary artery disease, osteoarthritis of the left knee, patient presented to the emergency department at [facility] last night after he had a tremendous amount of pain in the left lower quadrant after he had an ice cream cake but he stated that he has been using some notes over the last week or so, patient stated that the pain was sharp in the left lower quadrant associated with significant amount of pain he was not able to go to the bathroom, he ended up coming to the emergency department at [facility] after he was nauseated, he felt that his abdomen is quite distended as well, he denies any fever or chills he denies any recent travel, he denies any blood in the stool, he denies any recent change in his medication, patient ended up going for a CT scan of the abdomen and pelvis that did show evidence of diverticulitis in the sigmoid region with possible small perforation due to the free air in the abdomen patient was admitted under general surgery and I was asked to see the patient for medical management he was placed on clear liquid diet, he was started on IV fluid resuscitation in the form of normal saline, he was placed on Zosyn 3.375 g IV piggyback every 8 hours, we were consulted for his medical management. 06/16: Patient is sitting up in the chair in no apparent distress, his was at the bedside, he denies any chest pain, shortness of breath, he is moving around okay, he did have a bowel movement, he denies any bloody stool, he denies any nausea or vomiting at this time, he seems to be tolerating treatment very well, patient will likely be discharged home tomorrow morning on oral antibiotic, patient may need to have a repeated CT scan or even colonoscopy in the next 4 to 6 weeks from now. REVIEW OF SYSTEMS: Constitutional: No documented fever, no chills, no night sweats. No weight change. No weakness, fatigue or lethargy. No daytime sleepiness. EENT: No headache. No blurred vision or double vision, no loss of vision. No loss of Hearing, no ringing in the ears, no dizziness. No nasal drainage or congestion. No epistaxis. No sore throat. Lungs: No shortness of breath, no cough, no sputum production. No wheezing. Reports dyspnea with activity. Cardiovascular: No chest pain, no lower extremity edema. No palpitations. No paroxysmal nocturnal dyspnea. No orthopnea. No lightheadedness or dizziness. No syncopal episodes. Abdominal: Reports abdominal pain. No nausea, vomiting. No diarrhea. No constipation. No bloody or tarry stools reports loss of appetite. Genitourinary: No dysuria, increased frequency, urgency. No urinary retention. Musculoskeletal: No myalgias. No muscle weakness, no gait dysfunction, no frequent falls. No back pain. No neck pain. Integumentary: No wounds, no lesions. No rash or pruritus. No unusual bruising. No change in hair or nails. Neurologic: No aphasia. No facial droop. No change in mentation. No head injury. No headache. No paralysis. No paresthesia. Psychiatric: No depression. No anxiety. No mood swings. Endocrine: No abnormal blood sugars. No weight change. PHYSICAL EXAMINATION: General: 72-year-old male is lying down in bed in distress, HEENT: Head is atraumatic, normocephalic, pupils were equal round reactive to light and recommendation, extraocular muscle movement were intact, sclera nonicteric, conjunctivae were pale, mucous membranes of the mouth are somewhat dry. Neck: Supple, no JVP, normal carotid upstroke bilaterally, no lymphadenopathy. Chest: Decreased breath sounds at the bases, few rhonchi, no expiratory wheezes, no chest wall tenderness, no intercostal retractions. Heart: First heart sound is normal, second heart sound is normal there is systolic ejection murmur 2/6 located in the left sternal border. Abdomen: Moderate tenderness of the left lower quadrant no rebound or guarding positive bowel sound positive for distention, positive for bowel sounds. Extremities: There is no edema no calf tenderness DP +2 bilaterally. Neurologic examination: Patient is awake alert and oriented x3 , cranial nerves II-12 appear grossly intact, muscle power were 5 out of 5 in upper extremities and 5 out of 5 in bilateral lower extremities, deep tendon reflexes normal bilaterally. ASSESSMENT AND PLAN: 1. Acute sigmoid diverticulitis with possible microperforation. Continue patient on clear liquid diet for now, continue patient on current pain management as outlined by general surgery, continue patient on Zosyn 3.375 g piggyback every 8 hours, monitor the patient very closely, repeat the x-ray in the morning, we will continue to follow-up with the patient, repeat CBC tomorrow morning. 2. Leukocytosis likely due to diverticulitis with microperforation. Continue patient on IV antibiotic, continue IV fluid repeat CBC tomorrow morning. 3. History of coronary artery disease of [place] arteries without evidence of angina pectoris at this time, continue to monitor the patient very closely. 4. Mixed hyperlipidemia. Patient is not taking any statin at this time. 5. History of essential thrombocythemia. Continue patient on hydroxyurea 500 mg orally twice every day. 6. History of osteoarthritis of the left knee. Continue patient on current pa in management. 7. DVT prophylaxis. Heparin 5000 units subcutaneously every 8 hours. 8. GI prophylaxis. Continue Protonix 40 mg IV push every 24 hours. 9. Hopefully home tomorrow morning. Objective - Vital Signs Vital signs: Vital Signs Temp 97.7 F 06/17/23 12:54 Pulse 73 06/17/23 12:54 Resp 16 06/17/23 12:54 BP 149/81 06/17/23 12:54 Pulse Ox 95 06/17/23 12:54 FiO2 Intake & Output 06/16/23 06/17/23 06/17/23 18:59 06:59 18:59 Weight 77.111 kg Other: Voiding Method Toilet Toilet # Voids 2 2 - Labs CBC & Chem 7: 06/17/23 06:37 06/17/23 06:37 Labs: Abnormal Lab Results - Last 24 Hours (Table) 06/17/23 06/17/23 Range/Units 06:37 06:37 WBC 10.76 H (4.50-10.00) X 10*3/uL RBC 4.18 L (4.40-5.60) X 10*6/uL Hgb 12.9 L (13.0-17.0) g/dL MCHC 31.9 L (32.0-37.0) g/dL RDW 15.9 H (11.5-14.5) % Immature Gran # 0.05 H (0.00-0.04) X 10*3/uL Neutrophils # 8.30 H (1.80-7.70) X 10*3/uL BUN 8.0 L (9.0-27.0) mg/dL BUN/Creatinine Ratio 8.89 L (12.00-20.00) Ratio AST 42 H (14-35) U/L Total Protein 6.0 L (6.2-8.2) g/dL Microbiology - Last 24 Hours (Table) 06/16/23 03:20 Blood Culture - Preliminary Blood 06/16/23 03:05 Blood Culture - Preliminary Blood
[2023-06-18 11:09] LABS: Basophils # (A) 0.09 X 10*3/uL (0.00-0.10); Eosinophils # (A) 0.14 X 10*3/uL (0.04-0.35); Eosinophils % (A) 1.5 %; HCT 40.8 % (39.6-50.0); HGB 12.8 g/dL (13.0-17.0); Lymphocytes # (A) 1.29 X 10*3/uL (0.90-5.00); Lymphocytes % (A) 14.1 %; MCH 30.3 pg (27.0-32.0); MCHC 31.4 g/dL (32.0-37.0); MCV 96.7 FL (80.0-97.0); Mean Platelet Volume 10.7 FL (9.5-12.2); Monocytes # (A) 0.53 X 10*3/uL (0.20-1.00); Monocytes % (A) 5.8 %; NRBC Per 100 WBC 0 X 10*3/uL (0.00-0.01); Neutrophils # (A) 7.06 X 10*3/uL (1.80-7.70); Neutrophils % (A) 76.8 %; Platelet Count 282 X 10*3/uL (140-440); RBC 4.22 X 10*6/uL (4.40-5.60); RDW 15.9 % (11.5-14.5); WBC 9.18 X 10*3/uL (4.50-10.00)
[2023-06-18 11:19] LABS: ALT 35 U/L (10-49); AST 29 U/L (14-35); Albumin 3.9 g/dL (3.8-4.9); Albumin/Globulin Ratio 1.86 Ratio (1.60-3.17); Alkaline Phosphatase 76 U/L (41-126); BUN/Creat Ratio 7.44 Ratio (12.00-20.00); Blood Urea Nitrogen 6.7 mg/dL (9.0-27.0); Calcium 8.9 mg/dL (8.7-10.3); Carbon Dioxide 22.6 mmol/L (21.6-31.8); Chloride 106 mmol/L (96-109); Globulin 2.1 g/dL (1.6-3.3); Glucose 85 mg/dL (70-110); Potassium 4.2 mmol/L (3.5-5.5); Sodium 139 mmol/L (135-145); Total Bilirubin 0.8 mg/dL (0.3-1.2)
--- NOTE | 2023-06-18 12:23 | P.PN ---
Subjective Progress Note Date: 06/18/23 HISTORY OF PRESENT ILLNESS: This is a 72-year-old male with a previous medical history significant for essential thrombocythemia, history of mixed hyperlipidemia, coronary artery disease, osteoarthritis of the left knee, patient presented to the emergency department at [facility] last night after he had a tremendous amount of pain in the left lower quadrant after he had an ice cream cake but he stated that he has been using some notes over the last week or so, patient stated that the pain was sharp in the left lower quadrant associated with significant amount of pain he was not able to go to the bathroom, he ended up coming to the emergency department at [facility] after he was nauseated, he felt that his abdomen is quite distended as well, he denies any fever or chills he denies any recent travel, he denies any blood in the stool, he denies any recent change in his medication, patient ended up going for a CT scan of the abdomen and pelvis that did show evidence of diverticulitis in the sigmoid region with possible small perforation due to the free air in the abdomen patient was admitted under general surgery and I was asked to see the patient for medical management he was placed on clear liquid diet, he was started on IV fluid resuscitation in the form of normal saline, he was placed on Zosyn 3.375 g IV piggyback every 8 hours, we were consulted for his medical management. 06/16: Patient is sitting up in the chair in no apparent distress, his was at the bedside, he denies any chest pain, shortness of breath, he is moving around okay, he did have a bowel movement, he denies any bloody stool, he denies any nausea or vomiting at this time, he seems to be tolerating treatment very well, patient will likely be discharged home tomorrow morning on oral antibiotic, patient may need to have a repeated CT scan or even colonoscopy in the next 4 to 6 weeks from now. 06/17: Patient is ambulating around the room. He denies any chest pain shortness of breath abdominal pain nausea or vomiting. Patient was able to tolerate soft diet for breakfast today. Last bowel movement yesterday. Patient will likely go home this afternoon on oral antibiotics. Prescriptions have been sent to his pharmacy as requested. He has been advised to follow-up in the office in 1 week. REVIEW OF SYSTEMS: Constitutional: No documented fever, no chills, no night sweats. No weight change. No weakness, fatigue or lethargy. No daytime sleepiness. EENT: No headache. No blurred vision or double vision, no loss of vision. No loss of Hearing, no ringing in the ears, no dizziness. No nasal drainage or congestion. No epistaxis. No sore throat. Lungs: No shortness of breath, no cough, no sputum production. No wheezing. Reports dyspnea with activity. Cardiovascular: No chest pain, no lower extremity edema. No palpitations. No paroxysmal nocturnal dyspnea. No orthopnea. No lightheadedness or dizziness. No syncopal episodes. Abdominal: Reports abdominal pain. No nausea, vomiting. No diarrhea. No constipation. No bloody or tarry stools reports loss of appetite. Genitourinary: No dysuria, increased frequency, urgency. No urinary retention. Musculoskeletal: No myalgias. No muscle weakness, no gait dysfunction, no frequent falls. No back pain. No neck pain. Integumentary: No wounds, no lesions. No rash or pruritus. No unusual bruising. No change in hair or nails. Neurologic: No aphasia. No facial droop. No change in mentation. No head injury. No headache. No paralysis. No paresthesia. Psychiatric: No depression. No anxiety. No mood swings. Endocrine: No abnormal blood sugars. No weight change. PHYSICAL EXAMINATION: General: 72-year-old male is lying down in bed in distress, HEENT: Head is atraumatic, normocephalic, pupils were equal round reactive to light and recommendation, extraocular muscle movement were intact, sclera nonicteric, conjunctivae were pale, mucous membranes of the mouth are somewhat dry. Neck: Supple, no JVP, normal carotid upstroke bilaterally, no lymphadenopathy. Chest: Decreased breath sounds at the bases, few rhonchi, no expiratory wheezes, no chest wall tenderness, no intercostal retractions. Heart: First heart sound is normal, second heart sound is normal there is systolic ejection murmur 2/6 located in the left sternal border. Abdomen: Moderate tenderness of the left lower quadrant no rebound or guarding positive bowel sound positive for distention, positive for bowel sounds. Extremities: There is no edema no calf tenderness DP +2 bilaterally. Neurologic examination: Patient is awake alert and oriented x3 , cranial nerves II-12 appear grossly intact, muscle power were 5 out of 5 in upper extremities and 5 out of 5 in bilateral lower extremities, deep tendon reflexes normal bilaterally. ASSESSMENT AND PLAN: 1. Acute sigmoid diverticulitis with possible microperforation. Continue patient on clear liquid diet for now, continue patient on current pain management as outlined by general surgery, continue patient on Zosyn 3.375 g piggyback every 8 hours, monitor the patient very closely, repeat the x-ray in the morning, we will continue to follow-up with the patient, repeat CBC tomorrow morning. 2. Leukocytosis likely due to diverticulitis with microperforation. Continue patient on IV antibiotic, continue IV fluid repeat CBC tomorrow morning. 3. History of coronary artery disease of [place] arteries without evidence of angina pectoris at this time, continue to monitor the patient very closely. 4. Mixed hyperlipidemia. Patient is not taking any statin at this time. 5. History of essential thrombocythemia. Continue patient on hydroxyurea 500 mg orally twice every day. 6. History of osteoarthritis of the left knee. Continue patient on current pain management. 7. DVT prophylaxis. Heparin 5000 units subcutaneously every 8 hours. 8. GI prophylaxis. Continue Protonix 40 mg IV push every 24 hours. 9. Hopefully home this afternoon. Patient is cleared medically for discharge. Impression and plan of care have been directed as dictated by the signing physician. Luzmaria Gusman nurse practitioner acting as scribe for signing physician. Objective - Vital Signs Vital signs: Vital Signs Temp 98.4 F 06/18/23 07:05 Pulse 68 06/18/23 07:05 Resp 17 06/18/23 07:05 BP 148/84 06/18/23 07:05 Pulse Ox 91 L 06/18/23 07:05 FiO2 Intake & Output 06/17/23 06/18/23 06/18/23 18:59 06:59 18:59 Intake Total 420 Balance 420 Intake: Oral 420 Other: Voiding Method Toilet Toilet Toilet Urinal # Voids 3 3 - Labs CBC & Chem 7: 06/18/23 06:08 06/18/23 06:08 Labs: Abnormal Lab Results - Last 24 Hours (Table) 06/18/23 06/18/23 Range/Units 06:08 06:08 RBC 4.22 L (4.40-5.60) X 10*6/uL Hgb 12.8 L (13.0-17.0) g/dL MCHC 31.4 L (32.0-37.0) g/dL RDW 15.9 H (11.5-14.5) % Immature Gran # 0.07 H (0.00-0.04) X 10*3/uL BUN 6.7 L (9.0-27.0) mg/dL BUN/Creatinine Ratio 7.44 L (12.00-20.00) Ratio Total Protein 6.0 L (6.2-8.2) g/dL Microbiology - Last 24 Hours (Table) 06/16/23 03:20 Blood Culture - Preliminary Blood 06/16/23 03:05 Blood Culture - Preliminary Blood
--- NOTE | 2023-06-18 12:43 | P.DS ---
Providers Date of admission: 06/16/23 03:07 Expected date of discharge: 06/18/23 Attending physician: Aman Estevez Consults: 06/16/23 03:06 Consult Physician Urgent Consulting Provider: Tomas Meadows Consult Reason/Comments: medical management Do you want consulting provider notified?: Yes, Notify in am Primary care physician: Tomas Meadows Hospital Course: this a 72-year-old male who is admitted hospital with acute diverticulitis. Patient symptoms improved with bowel rest and IV antibiotic. The day discharge his vital signs are stable. His abdomen soft nontender. Patient Condition at Discharge: Good Plan - Discharge Summary Discharge Rx Participant: Yes New Discharge Prescriptions: New Ciprofloxacin HCl [Cipro] 500 mg PO Q12HR #14 tablet metroNIDAZOLE [Flagyl] 500 mg PO TID #42 tab Continue Hydroxyurea [Hydrea] 500 mg PO BID Discharge Medication List Hydroxyurea [Hydrea] 500 mg PO BID 06/16/23 [History] Ciprofloxacin HCl [Cipro] 500 mg PO Q12HR #14 tablet 06/18/23 [Rx] metroNIDAZOLE [Flagyl] 500 mg PO TID #42 tab 06/18/23 [Rx] Follow up Appointment(s)/Referral(s): Aman Estevez MD [STAFF PHYSICIAN] - 1 Week Tomas Meadows MD [Primary Care Provider] - 2 Weeks Discharge Disposition: HOME SELF-CARE
[2023-06-18 13:29] VITALS: BP 133/75; PULSE 65; RESP 16; TEMP 97.9
== END 2023-06-18 13:50 | disposition home or self-care (01) | DRG 392 ==
LOC: EC 23:26 → 4SSUR 06-16 03:07
PROVIDERS: ADMIT Surgery; ATTEND Surgery
DX: K57.20 Diverticulitis of large intestine with perforation and abscess without bleeding (principal); D47.3 Essential (hemorrhagic) thrombocythemia; K46.9 Unspecified abdominal hernia without obstruction or gangrene; E78.2 Mixed hyperlipidemia; M17.12 Unilateral primary osteoarthritis, left knee; I25.10 Atherosclerotic heart disease of native coronary artery without angina pectoris; Z79.899 Other long term (current) drug therapy; Z88.3 Allergy status to other anti-infective agents
CPT/HCPCS: 36415; 74177; 80053; 81003; 82150; 83605; 83690; 85025; 87040; 96361; 96365; 96366; 99285

== ENCOUNTER 2023-07-08 08:04 | Day surgery (SDC) | payer MEDICARE ==
[2023-07-07 09:06] VITALS: BMI 25.8
[2023-07-08] MEDS: LACTATED RINGERS 1,000 ML IV SCH (08:25)
[2023-07-08] MEDS ORDERED: PROPOFOL 10 MG/ML 20 ML VIAL IV ONE (09:03)
[2023-07-08 09:12] VITALS: TEMP 96.9
--- NOTE | 2023-07-08 09:20 | P.OP ---
Date of Procedure: 07/08/23 Preoperative Diagnosis: diverticulitis Postoperative Diagnosis: severe diverticulosis Procedure(s) Performed: colonoscopy Anesthesia: MAC Surgeon: Aman Estevez Pathology: none sent Condition: stable Disposition: PACU Description of Procedure: patient's placed on the endoscopy table in the lateral position. He received IV sedation. Digital rectal exam was performed. This revealed no abnormalities. The flexible colonoscope was then placed patient anus and passed throughout the entire colon. The ileocecal valve was visualized. The cecum, ascending and transverse colon appeared normal. In the descending sigmoid colon there is extensive diverticular changes. Scope was then brought back the rectum and this appeared normal. Scope withdrawn for patient.
[2023-07-08 09:57] VITALS: BP 144/82; PULSE 64; RESP 18
== END 2023-07-08 09:55 | disposition home or self-care (01) ==
LOC: ORWHC2ENDO 08:04
PROVIDERS: ATTEND Surgery
DX: K57.30 Diverticulosis of large intestine without perforation or abscess without bleeding (principal); D75.1 Secondary polycythemia; Z88.8 Allergy status to other drugs, medicaments and biological substances; Z79.82 Long term (current) use of aspirin
CPT/HCPCS: 45378; J2704

== ENCOUNTER → 2023-07-20 | Outpatient (CLI) | payer MEDICARE ==
[2023-07-20 21:48] LABS: Basophils % (A) 1.2 %; Eosinophils # (A) 0.12 X 10*3/uL (0.04-0.35); Eosinophils % (A) 1.4 %; HCT 47.8 % (39.6-50.0); HGB 15.1 g/dL (13.0-17.0); Lymphocytes # (A) 1.14 X 10*3/uL (0.90-5.00); Lymphocytes % (A) 13.3 %; MCH 32.4 pg (27.0-32.0); MCHC 31.6 g/dL (32.0-37.0); MCV 102.6 FL (80.0-97.0); Mean Platelet Volume 11.2 FL (9.5-12.2); Monocytes # (A) 0.49 X 10*3/uL (0.20-1.00); Monocytes % (A) 5.7 %; NRBC Per 100 WBC 0 X 10*3/uL (0.00-0.01); Neutrophils # (A) 6.67 X 10*3/uL (1.80-7.70); Neutrophils % (A) 77.9 %; Platelet Count 273 X 10*3/uL (140-440); RBC 4.66 X 10*6/uL (4.40-5.60); RDW 16.7 % (11.5-14.5); WBC 8.56 X 10*3/uL (4.50-10.00)
== END | disposition home or self-care (01) ==
LOC: LABWHC1 13:27
PROVIDERS: ATTEND Internal Medicine
DX: D47.3 Essential (hemorrhagic) thrombocythemia (principal)
CPT/HCPCS: 36415; 85025

== ENCOUNTER → 2023-07-22 | Outpatient (CLI) | payer MEDICARE ==
[2023-07-22 09:24] VITALS: BP 137/86; PULSE 74; RESP 14; TEMP 97.6
== END ==
LOC: PROCWHC3 08:43
PROVIDERS: ATTEND Internal Medicine
DX: D45 Polycythemia vera (principal); D47.3 Essential (hemorrhagic) thrombocythemia
CPT/HCPCS: 99195

== ENCOUNTER → 2023-10-21 | Outpatient (CLI) | payer MEDICARE ==
[2023-10-21 09:02] VITALS: RESP 16; TEMP 98
[2023-10-21 09:35] VITALS: BP 136/80; PULSE 56
== END ==
LOC: PROCWHC3 08:55
PROVIDERS: ATTEND Internal Medicine
DX: D45 Polycythemia vera (principal); D47.3 Essential (hemorrhagic) thrombocythemia
CPT/HCPCS: 99195

== ENCOUNTER → 2024-01-21 | Outpatient (CLI) | payer MEDICARE ==
[2024-01-21 09:05] VITALS: RESP 18; TEMP 97.6
[2024-01-21 09:31] VITALS: BP 125/74; PULSE 60
== END ==
LOC: PROCWHC3 08:55
PROVIDERS: ATTEND Internal Medicine
DX: D45 Polycythemia vera (principal); D47.3 Essential (hemorrhagic) thrombocythemia
CPT/HCPCS: 99195

== ENCOUNTER → 2024-04-24 | Outpatient (CLI) | payer MEDICARE ==
[~2024-04-24] MED LIST changes: +SODIUM CHLORIDE 0.9% 250 ML in EMPTY BAG 1 BAG IV PRN
[2024-04-24 08:57] VITALS: RESP 15; TEMP 97.6
[2024-04-24 09:29] VITALS: BP 160/93; PULSE 73
== END ==
LOC: PROCWHC3 08:35
PROVIDERS: ATTEND Internal Medicine
DX: D45 Polycythemia vera (principal); D47.3 Essential (hemorrhagic) thrombocythemia
CPT/HCPCS: 99195

== ENCOUNTER 2024-07-01 16:30 | Emergency (ER) | payer MEDICARE ==
[2024-07-01 16:39] VITALS: RESP 20
--- NOTE | 2024-07-01 16:54 | ED ---
Extremity Problem HPI - General Chief complaint: Wound/Laceration Stated complaint: right arm injury Time Seen by Provider: 07/01/24 16:41 Source: patient, RN notes reviewed Mode of arrival: ambulatory Limitations: no limitations - History of Present Illness Initial comments: This is a 73-year-old male who presents to the emergency department for an inju ry to the right forearm. States that he was cutting down a tree and when it fell down the top portion containing the portion of the branches hit his right arm on the way down. most of the pain and injury was to the right forearm. He has skin tears and swelling over this area. Also reports small scratches over the right chest without any pain to this area. He also has a very minor abrasion to the left ledesma. Tetanus vaccine is up-to-date. Denies any pain to his head. MD Complaint: extremity pain - Related Data Home Medications Medication Instructions Recorded Confirmed Hydroxyurea [Hydrea] 500 mg PO BID 06/16/23 04/24/24 Aspirin [[place] Aspirin EC] 81 mg PO DAILY 07/07/23 04/24/24 Allergies Allergy/AdvReac Type Severity Reaction Status Date / Time bacitracin Allergy Rash/Hives Verified 07/01/24 16:38 [From Neosporin ([id number])] bacitracin zinc Allergy Rash/Hives Verified 07/01/24 16:38 [From Neosporin ([id number])] neomycin sulfate Allergy Rash/Hives Verified 07/01/24 16:38 [From Neosporin ([id number])] polymyxin B Allergy Rash/Hives Verified 07/01/24 16:38 [From Neosporin ([id number])] Review of Systems ROS Statement: Those systems with pertinent positive or pertinent negative responses have been documented in the HPI. ROS Other: All systems not noted in ROS Statement are negative. Past Medical History Past Medical History: Blood Disorder Additional Past Medical History / Comment(s): ELEVATED PLATELET COUNT. POLYCYTHEMIA. History of Any Multi-Drug Resistant Organisms: None Reported Past Surgical History: Heart Catheterization, Hernia Repair, Orthopedic Surgery Additional Past Surgical History / Comment(s): RIGHT SHOULDER X 2 , ARTHROSCOPIC LEFT KNEE, colonoscopy, polyp, diverticulosis ,diverticulitis Past Anesthesia/Blood Transfusion Reactions: No Reported Reaction Additional Past Anesthesia/Blood Transfusion Reaction / Comment(s): no blood transfusion Past Psychological History: No Psychological Hx Reported Smoking Status: Never smoker - Past Family History Mother Family Medical History: CVA/TIA, Dementia General Exam Limitations: no limitations General appearance: alert, in no apparent distress Head exam: Present: atraumatic, normocephalic, normal inspection Respiratory exam: Present: normal lung sounds bilaterally. Absent: respiratory distress, wheezes, rales, rhonchi, stridor Cardiovascular Exam: Present: regular rate, normal rhythm Extremities exam: Present: other (Swelling and tenderness to the right forearm with overlying skin tears. 2+ radial pulses. Superficial skin tear to the left ledesma.) Neurological exam: Present: alert, oriented X3, CN II-XII intact Psychiatric exam: Present: normal affect, normal mood Skin exam: Present: other (Superficial abrasion to the right side of the chest. No swelling or tenderness.) Course Vital Signs 07/01/24 16:35 Temperature 98.8 F Pulse Rate 64 Respiratory 20 Rate Blood Pressure 166/76 O2 Sat by Pulse 96 Oximetry Medical Decision Making - Medical Decision Making This is a 73-year-old male who presents to the emergency department for a right arm injury. Was pt. sent in by a medical professional or institution? @ -No Did you speak to anyone other than the patient for history? @ -No Did you review nursing and triage notes? @ -Yes, and I agree, it is accurate with regards to the patient's symptoms. Were old charts reviewed? @ -No Differential Diagnosis? @ -Differential Musculoskeletal Muscular strain, contusion, ligament sprain, fracture, arthritis, septic arthritis, bursitis, cellulitis, muscle spasm, nerve compression, DVT, arterial occlusion, herpes zoster, electrolyte abnormality, tumor.... This is not meant to be in all inclusive list EKG interpreted by me (3pts min.)? @ -Not obtained X-rays interpreted by me (1pt min.)? @ -Chest x-ray obtained, my interpretation identifies no localized consolidations or infiltrates. X-ray of the right hand and forearm obtained. My interpretation identifies no acute fractures. CT interpreted by me (1pt min.)? @ -Not obtained U/S interpreted by me (1pt. min.)? @ -Not obtained What testing was considered but not performed? (CT, X-rays, U/S, labs)? Why? @ -None What meds were considered but not given? Why? @ -None Did you discuss the management of the patient with other professionals? @ -No Did you reconcile home meds? @ -No Was smoking cessation discussed for >3mins.? @ -No Was critical care preformed (if so, how long)? @ -No Were there social determinants of health that impacted care today? How? (Homelessness, low income, unemployed, alcoholism, drug addiction, transportation, low edu. Level, literacy, decrease access to med. care, [facility], rehab)? @ -No Was there de-escalation of care discussed even if they declined? (Discuss DNR or withdrawal of care, Hospice)? @ -No What co-morbidities impacted this encounter? (DM, HTN, Smoking, COPD, CAD, Cancer, CVA, Hep., AIDS, mental health diagnosis, sleep apnea, morbid obesity)? @ -None Was patient admitted / discharged? @ -Discharged. X-ray of the right hand and forearm obtained revealing no acute process. Chest x-ray also revealed no acute findings. Patient's abrasions were cleansed. Mupirocin ointment applied and the wounds were bandaged. Tetanus vaccine is already up-to-date. Patient sent home with the Mupirocin ointment and supplies to continue caring for the wounds. Advised Tylenol as needed for pain relief. Patient discharged home in stable condition and will follow-up with his PCP in the next couple of days. Case discussed with ED attending Dr. Martinez. Return precautions reviewed in depth, the patient is instructed to return to the emergency department with any new, worsening, or concerning symptoms. Patient verbalized understanding. Undiagnosed new problem with uncertain prognosis? @ -None Drug Therapy requiring intensive monitoring for toxicity (Heparin, Nitro, Insulin, Cardizem)? @ -None Were any procedures done? @ -None Diagnosis/symptom? @ -Right arm injury, multiple abrasions, skin tears Acute, or Chronic, or Acute on Chronic? @ -Acute Uncomplicated (without systemic symptoms) or Complicated (systemic symptoms)? @ -Uncomplicated Side effects of treatment? @ -None Exacerbation, Progression, or Severe Exacerbation] @ -Not applicable Poses a threat to life or bodily function? @ -No - Radiology Data Radiology results: report reviewed, image reviewed Disposition Clinical Impression: Injury of right lower arm, Multiple abrasions, Skin tear Disposition: HOME SELF-CARE Instructions (If sedation given, give patient instructions): Abrasion (ED), Skin Tear (ED) Additional Instructions: Return to the emergency department with any new, worsening, or concerning symptoms. Keep the area clean and dry. You can continue applying the mupirocin ointment. You can also ice the area. Follow up with your primary care provider in 1-2 days. Is patient prescribed a controlled substance at d/c from ED?: No Referrals: Tomas Meadows MD [Primary Care Provider] - 1-2 days Time of Disposition: 17:32
--- NOTE | 2024-07-01 17:01 | XR ---
EXAMINATION TYPE: XR chest 2V DATE OF EXAM: 07/01/2024 4:56 PM COMPARISON: Chest radiograph dated 05/17/2017. CLINICAL INDICATION: Male, 73 years old with history of Crush injury; [facility] TECHNIQUE: XR chest 2V Frontal and lateral views of the chest. FINDINGS: Lungs/Pleura: There is no evidence of pleural effusion, focal consolidation, or pneumothorax. Pulmonary vascularity: Unremarkable. Heart/mediastinum: Cardiomediastinal silhouette is unremarkable. Musculoskeletal: No acute osseous pathology. Other findings: None IMPRESSION: No acute cardiopulmonary disease/process. [facility], , 07/01/2024 4:59 PM
--- NOTE | 2024-07-01 17:02 | XR ---
EXAMINATION TYPE: XR forearm RT DATE OF EXAM: 07/01/2024 4:56 PM COMPARISON: None. CLINICAL INDICATION: Male, 73 years old with history of Crush injury; [facility], pain TECHNIQUE: XR forearm RT; forearm was examined in AP and lateral projections. FINDINGS: No acute osseous pathology, soft tissue swelling or joint dislocations are seen. IMPRESSION: No evidence of acute fracture. [facility], , 07/01/2024 5:00 PM
--- NOTE | 2024-07-01 17:04 | XR ---
EXAMINATION TYPE: XR hand complete RT DATE OF EXAM: 07/01/2024 4:56 PM COMPARISON: None. CLINICAL INDICATION: Male, 73 years old with history of Crush injury; [facility], pain TECHNIQUE: XR hand complete RT Frontal, lateral and oblique views were obtained. FINDINGS: Normal alignment of the visualized joints. No acute osseous pathology is identified. No e vidence of soft tissue swelling. Moderate degenerative arthritic changes of the first MCP joint. IMPRESSION: 1. No acute osseous pathology. 2. Multifocal osteoarthrosis throughout the joints of the hand. [facility], , 07/01/2024 5:01 PM
[2024-07-01] MEDS: MUPIROCIN 2% OINT 22 GM TUBE TOPICAL STA (17:15)
[2024-07-01] MEDS: ONDANSETRON ODT 4 MG TAB PO STA (17:15)
[2024-07-01] MEDS: ONDANSETRON 4 MG ODT STARTER PACK 2 TAB BTL PO STA (17:54)
[2024-07-01] MEDS: HYDROcodone/APAP 5-325MG 1 EACH TAB PO STA (17:54)
[2024-07-01 17:58] VITALS: BP 156/72; PULSE 68; TEMP 98.4
== END 2024-07-01 18:09 | disposition home or self-care (01) ==
LOC: EC 16:30
DX: S59.911A Unspecified injury of right forearm, initial encounter (principal); S86.912A Strain of unspecified muscle(s) and tendon(s) at lower leg level, left leg, initial encounter; S20.311A Abrasion of right front wall of thorax, initial encounter; Z88.8 Allergy status to other drugs, medicaments and biological substances; W23.0XXA Caught, crushed, jammed, or pinched between moving objects, initial encounter
CPT/HCPCS: 73090; 73130; 71046; 99283; S0119

== ENCOUNTER → 2024-07-21 | Outpatient (CLI) | payer MEDICARE ==
[2024-07-21 18:17] LABS: Basophils # (A) 0.13 X 10*3/uL (0.00-0.10); Basophils % (A) 1.2 %; Eosinophils # (A) 0.21 X 10*3/uL (0.04-0.35); HCT 49.1 % (39.6-50.0); HGB 15.2 g/dL (13.0-17.0); Lymphocytes # (A) 1.33 X 10*3/uL (0.90-5.00); Lymphocytes % (A) 12.5 %; MCH 29.9 pg (27.0-32.0); MCV 96.7 FL (80.0-97.0); Mean Platelet Volume 10.1 FL (9.5-12.2); Monocytes # (A) 0.58 X 10*3/uL (0.20-1.00); Monocytes % (A) 5.5 %; NRBC Per 100 WBC 0 X 10*3/uL (0.00-0.01); Neutrophils # (A) 8.29 X 10*3/uL (1.80-7.70); Neutrophils % (A) 78.1 %; Platelet Count 358 X 10*3/uL (140-440); RBC 5.08 X 10*6/uL (4.40-5.60); RDW 16.1 % (11.5-14.5); WBC 10.61 X 10*3/uL (4.50-10.00)
== END | disposition home or self-care (01) ==
LOC: LABWHC1 14:04
PROVIDERS: ATTEND Internal Medicine
DX: D47.3 Essential (hemorrhagic) thrombocythemia (principal); D45 Polycythemia vera
CPT/HCPCS: 36415; 85025

== ENCOUNTER → 2024-07-24 | Outpatient (CLI) | payer MEDICARE ==
[2024-07-24 09:04] VITALS: RESP 16
[2024-07-24 09:33] VITALS: BP 139/71; PULSE 73
== END ==
LOC: PROCWHC3 08:45
PROVIDERS: ATTEND Internal Medicine
DX: D45 Polycythemia vera (principal); D47.3 Essential (hemorrhagic) thrombocythemia
CPT/HCPCS: 99195